=== PATIENT | male | born 1940 | race Caucasian/White ===

== ENCOUNTER → 2016-09-11 | Outpatient (CLI) | payer MEDICARE, OTHER ==
[~2016-09-11] MED LIST: AUGM500T34 PO; FLOM5CAP PO; NORCOTAB PO; PRIN10TA PO
[2016-09-11 13:20] LABS: ANION GAP 8 MEQ/L (8-16); BLOOD UREA NITROGEN 31 MG/DL (7-18); CALCIUM LEVEL 9.4 MG/DL (8.8-10.2); CARBON DIOXIDE LEVEL 32 MEQ/L (21-32); CHLORIDE LEVEL 99 MEQ/L (98-107); CREATININE FOR GFR 1.14 MG/DL (0.70-1.30); GLOMERULAR FILTRATION RATE > 60.0 (>42); GLUCOSE, FASTING 136 MG/DL (83-110); POTASSIUM SERUM 5.1 MEQ/L (3.5-5.1); SODIUM LEVEL 139 MEQ/L (136-145)
== END ==
LOC: M WUC 08:59
PROVIDERS: ATTEND Family Medicine
DX: E11.9 Type 2 diabetes mellitus without complications (principal); Z79.899 Other long term (current) drug therapy

== ENCOUNTER → 2016-11-02 | Outpatient (REF) | payer MEDICARE, OTHER | LOC: M LABDRAWP 12:23 | PROVIDERS: ATTEND Family Medicine | DX: C44.319 Basal cell carcinoma of skin of other parts of face (principal) ==

== ENCOUNTER → 2017-02-15 | Outpatient (REF) | payer MEDICARE, OTHER | LOC: M LAB REF 16:01 | PROVIDERS: ATTEND Physician Assistant | DX: T30.0 Burn of unspecified body region, unspecified degree (principal); Z79.899 Other long term (current) drug therapy ==

== ENCOUNTER → 2017-04-02 | Outpatient (CLI) | payer MEDICARE, OTHER ==
[2017-04-02 09:00] LABS: MEAN CORPUSCULAR HEMOGLOBIN 28.9 pg (27.0-33.0); MEAN CORPUSCULAR HGB CONC 31.8 g/dl (32.0-36.5); MEAN CORPUSCULAR VOLUME 91.1 fl (80.0-96.0); PLATELET COUNT, AUTOMATED 163 10^3/uL (150-450); RED CELL DISTRIBUTION WIDTH 12.9 % (11.5-14.5); WHITE BLOOD COUNT 4.2 10^3/uL (4.0-10.0)
[2017-04-02 09:51] LABS: ALBUMIN/GLOBULIN RATIO 1.43 (1.00-1.93); ALKALINE PHOSPHATASE 62 U/L (45-117); ALT/SGPT 21 U/L (12-78); ANION GAP 4 MEQ/L (8-16); AST/SGOT 24 U/L (7-37); BILIRUBIN,TOTAL 0.6 MG/DL (0.2-1.0); BLOOD UREA NITROGEN 26 MG/DL (7-18); CARBON DIOXIDE LEVEL 36 MEQ/L (21-32); CHLORIDE LEVEL 101 MEQ/L (98-107); CHOLESTEROL LEVEL 199 MG/DL (<200); CREATININE FOR GFR 0.94 MG/DL (0.70-1.30); GLOMERULAR FILTRATION RATE > 60.0 (>42); GLUCOSE, FASTING 132 MG/DL (83-110); POTASSIUM SERUM 4.8 MEQ/L (3.5-5.1); SODIUM LEVEL 141 MEQ/L (136-145); TOTAL PROTEIN 6.8 GM/DL (6.4-8.2); TRIGLYCERIDES LEVEL 86 MG/DL (<150)
== END ==
LOC: M WUC 08:15
PROVIDERS: ATTEND Family Medicine
DX: E78.2 Mixed hyperlipidemia (principal); Z87.11 Personal history of peptic ulcer disease; E11.9 Type 2 diabetes mellitus without complications

== ENCOUNTER → 2017-12-24 | Outpatient (REF) | payer MEDICARE, OTHER ==
[2017-12-24 19:39] LABS: HEMATOCRIT 42.5 % (42.0-52.0); HEMOGLOBIN 13.5 g/dl (13.5-17.5); MEAN CORPUSCULAR HEMOGLOBIN 29.1 pg (27.0-33.0); MEAN CORPUSCULAR HGB CONC 31.8 g/dl (32.0-36.5); MEAN CORPUSCULAR VOLUME 91.6 fl (80.0-96.0); PLATELET COUNT, AUTOMATED 195 10^3/uL (150-450); RED BLOOD COUNT 4.64 10^6/uL (4.30-6.10); RED CELL DISTRIBUTION WIDTH 13.3 % (11.5-14.5); WHITE BLOOD COUNT 6.1 10^3/uL (4.0-10.0)
[2017-12-24 20:12] LABS: ALBUMIN/GLOBULIN RATIO 1.33 (1.00-1.93); ALKALINE PHOSPHATASE 64 U/L (45-117); ALT/SGPT 24 U/L (12-78); ANION GAP 9 MEQ/L (8-16); AST/SGOT 27 U/L (7-37); BILIRUBIN,TOTAL 0.6 MG/DL (0.2-1.0); BLOOD UREA NITROGEN 26 MG/DL (7-18); CALCIUM LEVEL 9.2 MG/DL (8.8-10.2); CARBON DIOXIDE LEVEL 31 MEQ/L (21-32); CHLORIDE LEVEL 101 MEQ/L (98-107); CHOLESTEROL LEVEL 201 MG/DL (<200); CHOLESTEROL RISK RATIO 3.722 (<5); CREATININE FOR GFR 1.06 MG/DL (0.70-1.30); GLOMERULAR FILTRATION RATE > 60.0 (>42); GLUCOSE, FASTING 81 MG/DL (70-100); HDL CHOLESTEROL 54 MG/DL (>40); LDL CHOLESTEROL 113 MG/DL (<100); NON-HDL-C 147 MG/DL; POTASSIUM SERUM 4.3 MEQ/L (3.5-5.1); SODIUM LEVEL 141 MEQ/L (136-145); TRIGLYCERIDES LEVEL 172 MG/DL (<150)
[2017-12-24 20:19] LABS: ESTIMATED AVERAGE GLUCOSE 134 MG/DL (60-110); HEMOGLOBIN A1c 6.3 %
[2017-12-24 22:16] LABS: CREATININE, URINE 73.3 MG/DL
[2017-12-24 22:26] LABS: MAU/CREAT RATIO 49.1 MCG/MG (0.0-30.0)
== END ==
LOC: M SFHCADAM 15:49
DX: E78.2 Mixed hyperlipidemia (principal); E11.9 Type 2 diabetes mellitus without complications; I10 Essential (primary) hypertension
CPT/HCPCS: 80053

== ENCOUNTER → 2018-05-21 | Outpatient (REF) | payer MEDICARE, OTHER ==
[~2018-05-21] MED LIST changes: +FLOM0.4C39 PO; -FLOM5CAP PO
== END ==
LOC: M SFHCADAM 15:05
PROVIDERS: ATTEND Family Medicine
DX: K52.9 Noninfective gastroenteritis and colitis, unspecified (principal)

== ENCOUNTER → 2018-05-27 | Outpatient (CLI) | payer MEDICARE, OTHER ==
--- NOTE | 2018-05-27 20:13 | ECHO ---
DATE OF PROCEDURE: 05/27/2018 REFERRING PHYSICIAN: Soto Farmer MD INDICATION: Aortic stenosis. HEIGHT: 180 cm WEIGHT: 102 kg DIMENSIONS: IVS: 1.2 LV: 5.2 LVPW: 1.2 LA: 3.9 Aorta: 2.9 IVC: 1.5 Mitral E wave velocity: 112 Mitral A wave: 155 E prime septal: 5.1 E prime lateral: 5.3 Left atrial volume index: 25 FINDINGS: The study is of fair technical quality. The left ventricle is of normal size and systolic function with ejection fraction (EF) around 60%. Mild left ventricular hypertrophy (LVH) is noted. Right ventricle appears normal. Both atria are grossly normal size. Aortic valve is calcified. There is some restriction of cusp mobility. By 2-D imaging I assume mild aortic stenosis. There are also degenerative abnormalities of mitral valve with mitral annular calcifications, but mobility of leaflets is preserved. Tricuspid and pulmonic valves appear normal. No pericardial effusion is noted. Inferior vena cava is of normal caliber. Aortic root is normal. Aortic arch and abdominal aorta were not visualized. Doppler interrogation of aortic valve reveals mild stenosis (mean gradient 16 mmHg) and trace insufficiency. There is mild mitral insufficiency and mild tricuspid insufficiency. Calculated pulmonary artery pressure is minimum in 30s corresponding to mild pulmonary hypertension. Trace pulmonic insufficiency seen. Doppler interrogation of mitral inflow pattern and tissue Doppler imaging of mitral annulus reveal grade 1 diastolic dysfunction. CONCLUSION 1. Study is of fair technical quality. 2. Normal LV size with mild LVH and grossly preserved LV systolic function. Grade 1 diastolic dysfunction. 3. Mild aortic stenosis. 4. Mild mitral and tricuspid insufficiency. 5. Likely normal central venous pressure but at least mildly elevated pulmonary artery pressure. COMMENT Subacute bacterial endocarditis (SBE) prophylaxis is not recommended.
== END ==
LOC: M CARPUL 08:06
PROVIDERS: ATTEND Family Medicine
DX: I35.0 Nonrheumatic aortic (valve) stenosis (principal)

== ENCOUNTER → 2018-07-11 | Outpatient (CLI) | payer MEDICARE, OTHER ==
[~2018-07-11] MED LIST changes: +E-Z-GAS II EFFERVESCENT PACKET (SODIUM BICARB./CITRIC ACID/SIMETHICONE) As Ordered ONE; +E-Z-HD 98% w/w 340GM SUSP BTL As Ordered ONE; +E-Z-PAQUE 96% w/w SUSP 176GM BTL As Ordered ONE; +HYDR-3715 PO; -NORCOTAB PO
--- NOTE | 2018-07-11 16:37 | REP ---
Esophagram The procedure was performed under the direct supervision of Dr. Clayton. The images were reviewed with Dr. Clayton. A single view PA chest x-ray is submitted as a precision inspector film. The superior mediastinal structures are midline. The heart size is within normal limits. The lungs are clear. There is chronic elevation of the left hemidiaphragm as seen on a previous chest x-ray performed on 10/30/2013. Liquid barium and gas producing granules were given in the erect position as well as liquid barium in the prone oblique positions in order to perform a double contrast esophagram examination. The oral and pharyngeal stages of deglutition are unremarkable. There is exuberant osteophyte formation in the cervical spine which measures up to 12 mm in thickness. This causes eccentric compression of the cervical esophagus at the cervical thoracic junction. There are esophageal transport there are tertiary waves demonstrated. There is no esophagitis stricture mucosal ring or hiatal hernia. Gastroesophageal reflux is not demonstrated on this examination. Impression: 1. There is exuberant osteophyte formation in the cervical spine which measures up to 12 mm in thickness. This causes eccentric compression of the cervical esophagus at the cervical thoracic junction. 2. Tertiary waves. 0.8 minutes of fluoro time was utilized for this procedure. Reviewed by SHANIA Vaughn 07/11/2018 03:54 P Electronically Signed by Dg Clayton MD 07/11/2018 04:28 P
== END ==
LOC: M RAD 08:04
PROVIDERS: ATTEND Internal Medicine Gastroenterology
DX: R13.12 Dysphagia, oropharyngeal phase (principal)

== ENCOUNTER → 2018-07-28 | Outpatient (CLI) | payer MEDICARE, OTHER ==
[~2018-07-28] MED LIST changes: +ASPI1TAB22 PO; +CLOT1CRE71 TOP; -E-Z-GAS II EFFERVESCENT PACKET (SODIUM BICARB./CITRIC ACID/SIMETHICONE) As Ordered ONE; -E-Z-HD 98% w/w 340GM SUSP BTL As Ordered ONE; -E-Z-PAQUE 96% w/w SUSP 176GM BTL As Ordered ONE; +GLIP5TAB20 PO; +LISI-538 PO; +NIAS500T23 PO; +OMEP-221 PO
[2018-07-28 12:55] LABS: BLOOD UREA NITROGEN 23 MG/DL (7-18); CARBON DIOXIDE LEVEL 35 MEQ/L (21-32); CHLORIDE LEVEL 100 MEQ/L (98-107); CREATININE FOR GFR 0.96 MG/DL (0.70-1.30); GLOMERULAR FILTRATION RATE > 60.0 (>42); GLUCOSE, FASTING 173 MG/DL (70-100); POTASSIUM SERUM 4.2 MEQ/L (3.5-5.1); SODIUM LEVEL 139 MEQ/L (136-145)
== END ==
LOC: M WUC 09:45
PROVIDERS: ATTEND Family Medicine
DX: E11.9 Type 2 diabetes mellitus without complications (principal)
CPT/HCPCS: 36415; 80048; 83036; G0463

== ENCOUNTER 2018-08-05 09:06 | Day surgery (SDC) | payer MEDICARE, OTHER ==
[~2018-08-05] VITALS: Ht 175.3 cm; Wt 102.5 kg
[~2018-08-05 09:06] MED LIST changes: +NS 1,000 ML IV ONE
[2018-08-05] MEDS ORDERED: LIDOCAINE 2% INJ 100 MG/5 ML SDV (FOR ANES.) As Ordered ONE (11:41)
[2018-08-05] MEDS ORDERED: PROPOFOL 200 MG/20 ML VIAL As Ordered ONE (11:41)
--- NOTE | 2018-08-05 12:06 | ROOR ---
Patient Name: Kirk Curiel Procedure Date: 08/05/2018 11:49 AM Date of : 1940 Age: 78 Room: [facility] Gender: Male Note Status: Finalized Procedure: Upper GI endoscopy Indications: Heartburn, Follow-up of ulcer of the GI tract Providers: Hermes KEITH MD Referring MD: Soto Farmer MD Requesting Provider: Medicines: Monitored Anesthesia Care Complications: No immediate complications. Procedure: Pre-Anesthesia Assessment: - The heart rate, respiratory rate, oxygen saturations, blood pressure, adequacy of pulmonary ventilation, and response to care were monitored throughout the procedure. The Endoscope was introduced through the mouth, and advanced to the second part of duodenum. The upper GI endoscopy was accomplished without difficulty. The patient tolerated the procedure well. Findings: The esophagus was normal. The stomach was normal. (large volume/compliant stomach) The examined duodenum was normal. No endoscopic abnormality was evident in the esophagus to explain the patient's complaint of dysphagia. Biopsies were taken with a cold forceps in the gastric antrum for Helicobacter pylori testing. Impression: - Normal esophagus. - Normal stomach. - Normal examined duodenum. - Biopsies were taken with a cold forceps for Helicobacter pylori testing. Recommendation: - Observe patient's clinical course. Hermes Keith MD Hermes KEITH MD 08/05/2018 12:06:30 PM Electronically signed by Hermes KEITH MD Number of Addenda: 0 Note Initiated On: 08/05/2018 11:49 AM Estimated Blood Loss: Estimated blood loss: none.
--- NOTE | 2018-08-05 12:22 | ROOR ---
Patient Name: Kirk Curiel Procedure Date: 08/05/2018 11:49 AM Date of : 1940 Age: 78 Room: [facility] Gender: Male Note Status: Finalized Procedure: Colonoscopy Indications: Clinically significant diarrhea of unexplained origin Providers: Hermes KEITH MD Referring MD: Soto Farmer MD Requesting Provider: Medicines: Monitored Anesthesia Care Complications: No immediate complications. Procedure: Pre-Anesthesia Assessment: - The heart rate, respiratory rate, oxygen saturations, blood pressure, adequacy of pulmonary ventilation, and response to care were monitored throughout the procedure. The Colonoscope was introduced through the anus and advanced to the terminal ileum, with identification of the appendiceal orifice and IC valve. The colonoscopy was performed without difficulty. The patient tolerated the procedure well. The quality of the bowel preparation was adequate. Findings: The perianal and digital rectal examinations were normal. The colon (entire examined portion) was redundant. Mild sigmoid diverticulosis and small internal hemorrhoids. The exam was otherwise without abnormality on direct and retroflexion views. Biopsies for histology were taken with a cold forceps from the entire colon for evaluation of microscopic colitis. Impression: - Mild sigmoid diverticulosis and small internal hemorrhoids. - The colon examination was otherwise normal on direct and retroflexion views. - Biopsies were taken with a cold forceps from the entire colon for evaluation of microscopic colitis. Recommendation: - Telephone endoscopist for pathology results in 2 weeks. Hermes Keith MD Hermes KEITH MD 08/05/2018 12:21:57 PM Electronically signed by Hermes KEITH MD Number of Addenda: 0 Note Initiated On: 08/05/2018 11:49 AM Estimated Blood Loss: Estimated blood loss: none.
[2018-08-05 12:55] VITALS: BP 160/83
== END 2018-08-05 12:57 | disposition home or self-care (01) ==
LOC: M OPP 09:06
PROVIDERS: ATTEND Internal Medicine Gastroenterology
DX: Q43.8 Other specified congenital malformations of intestine (principal); R19.7 Diarrhea, unspecified; R13.10 Dysphagia, unspecified; R12 Heartburn; K28.9 Gastrojejunal ulcer, unspecified as acute or chronic, without hemorrhage or perforation; Z79.899 Other long term (current) drug therapy; Z79.82 Long term (current) use of aspirin; Z88.2 Allergy status to sulfonamides; Z88.8 Allergy status to other drugs, medicaments and biological substances

== ENCOUNTER → 2018-11-28 | Outpatient (CLI) | payer MEDICARE, OTHER ==
[~2018-11-28] MED LIST changes: -NS 1,000 ML IV ONE
--- NOTE | 2018-11-28 15:08 | REP ---
REASON: Constipation. KUB: FINDINGS: KUB shows the intestinal gas pattern to be nonspecific. The organ silhouettes insofar as delineated are unremarkable. There is no evidence of free intraperitoneal air. IMPRESSION: Nonspecific. The stool pattern appears normal. Electronically Signed by Garrett Saini DO 11/28/2018 03:13 P
== END ==
LOC: M WUC 14:25
PROVIDERS: ATTEND Nurse Practitioner Family
DX: R10.84 Generalized abdominal pain (principal); K59.00 Constipation, unspecified

== ENCOUNTER → 2018-12-15 | Outpatient (CLI) | payer MEDICARE, OTHER ==
--- NOTE | 2018-12-16 08:17 | REP ---
CT ABDOMEN AND PELVIS WITHOUT IV OR ORAL CONTRAST: HISTORY: Left lower quadrant pain. Comparison CT study, October 30, 2013. Comparison KUB, November 28, 2018. CT FINDINGS: Preliminary digital retail banker radiograph demonstrates a normal bowel gas pattern. The lung bases are clear. There are one or two granulomatous calcifications in the spleen. No focal hepatic lesion is seen. No adrenal lesion is observed. There is profound atrophy of the right kidney as noted previously. There are left renal cysts noted the largest of which measures 5 cm in greatest diameter. Previously, this measured 4.4 cm. There is also a 4.2 cm cyst which previously measured 3.5 cm. No hydronephrosis is seen. No intrarenal calculus is observed. The patient is status post appendectomy. Small and large intestinal bowel loops are normal in the upper abdomen. Pelvic CT images demonstrate sigmoid colon diverticulosis without CT evidence of diverticulitis. Urinary bladder and prostate are unremarkable. The right seminal vesicle is enlarged and cystic. The right ureter appears to insert here. This is unchanged in appearance from prior study. No abdominal wall defect is seen. IMPRESSION: There are two left renal cysts slightly larger than previous. Sigmoid colonic diverticulosis without CT evidence of diverticulitis. Prior appendectomy. Marked atrophy right kidney, unchanged. Electronically Signed by Dg Clayton MD 12/16/2018 09:08 A
== END ==
LOC: M RAD 15:53
PROVIDERS: ATTEND Family Medicine
DX: R10.32 Left lower quadrant pain (principal)

== ENCOUNTER → 2019-01-15 | Outpatient (CLI) | payer MEDICARE, OTHER ==
--- NOTE | 2019-01-15 12:36 | REP ---
ULTRASOUND URINARY BLADDER: Real-time sonographic evaluation of the urinary bladder performed. Bladder measures 12.3 x 8.2 x 6.6 cm for a total volume of 435 mL. No mass or calculus is seen. There is no bladder wall thickening. With Doppler color evaluation, the ureteral jets could not be visualized. Diverticulum is noted posteriorly and inferiorly on the right. Post-void residual is 247 mL which is 57% of the original volume. Prostate measures 3.6 x 3.4 x 3.6 cm for a total volume of 23 mL. IMPRESSION: Diverticulum at the right base of the bladder. Pre-void volume 435 mL, post-void residual 247 mL which is 57% of the original volume. Electronically Signed by Ap Keys MD 01/16/2019 09:22 A
--- NOTE | 2019-01-15 13:22 | REP ---
Renal sonography: History: BPH with urinary obstruction. Comparison study CT exam December 15, 2018. Sonographic findings: There is profound atrophy of the right kidney. The right kidney is poorly seen. It measures approximately 6.4 x 3.5 x 2.6 cm. There is no hydronephrosis visible on the right. There is evidence of compensatory enlargement of the left kidney. Its dimensions are 15.4 x 7.3 x 8.8 cm. There is no evidence of hydronephrosis. There are multiple cysts affecting the left kidney as seen on CT. These include a mid pole cyst measuring 5.2 x 4.4 x 3.2 cm and a lower pole cyst measuring 4.6 x 3.2 x 3.9 cm. Impression: Compensatory enlargement left kidney with two left renal cysts as above. No hydronephrosis. Profound atrophy right kidney without hydronephrosis. Electronically Signed by Dg Clayton MD 01/15/2019 01:27 P
== END ==
LOC: M RAD 10:39
PROVIDERS: ATTEND Nurse Practitioner Family
DX: N40.1 Benign prostatic hyperplasia with lower urinary tract symptoms (principal); N32.3 Diverticulum of bladder; N13.9 Obstructive and reflux uropathy, unspecified

== ENCOUNTER → 2019-01-27 | Outpatient (CLI) | payer MEDICARE, OTHER ==
[2019-01-27 13:03] LABS: ALBUMIN 3.6 GM/DL (3.2-5.2); ALT/SGPT 22 U/L (12-78); BILIRUBIN,TOTAL 1.1 MG/DL (0.2-1.0); BLOOD UREA NITROGEN 26 MG/DL (7-18); CALCIUM LEVEL 8.9 MG/DL (8.8-10.2); CARBON DIOXIDE LEVEL 35 MEQ/L (21-32); CHLORIDE LEVEL 99 MEQ/L (98-107); CHOLESTEROL LEVEL 199 MG/DL (<200); CHOLESTEROL RISK RATIO 3.685 (<5); CREATININE FOR GFR 1.11 MG/DL (0.70-1.30); GLOMERULAR FILTRATION RATE > 60.0 (>42); GLUCOSE, FASTING 194 MG/DL (70-100); HDL CHOLESTEROL 54 MG/DL (>40); LDL CHOLESTEROL 120 MG/DL (<100); NON-HDL-C 145 MG/DL; POTASSIUM SERUM 4.8 MEQ/L (3.5-5.1); SODIUM LEVEL 139 MEQ/L (136-145); TOTAL PROTEIN 6.7 GM/DL (6.4-8.2); TRIGLYCERIDES LEVEL 126 MG/DL (<150)
[2019-01-27 13:21] LABS: CREATININE, URINE 94.9 MG/DL; MALB URINE SIEMENS 56.5 MG/L; MAU/CREAT RATIO 59.5 MCG/MG (0.0-30.0)
[2019-01-27 13:42] LABS: HEMOGLOBIN A1c 8.6 %
== END ==
LOC: M WUC 09:04
PROVIDERS: ATTEND Family Medicine
DX: I10 Essential (primary) hypertension (principal); E78.2 Mixed hyperlipidemia; E11.9 Type 2 diabetes mellitus without complications

== ENCOUNTER → 2019-04-22 | Outpatient (CLI) | payer MEDICARE, OTHER ==
[2019-04-22 17:19] LABS: CALCIUM LEVEL 9.5 MG/DL (8.8-10.2); CREATININE FOR GFR 1.24 MG/DL (0.70-1.30); GLOMERULAR FILTRATION RATE 59.9 (>42); POTASSIUM SERUM 4.9 MEQ/L (3.5-5.1)
[2019-04-22 17:41] LABS: HEMOGLOBIN A1c 8.3 %
== END ==
LOC: M WUC 14:28
PROVIDERS: ATTEND Family Medicine
DX: E11.9 Type 2 diabetes mellitus without complications (principal)

== ENCOUNTER → 2019-04-22 | Outpatient (CLI) | payer MEDICARE, OTHER ==
--- NOTE | 2019-04-22 17:21 | REP ---
RIGHT ANKLE, FOUR VIEWS: There is no evidence of an acute fracture, dislocation or intrinsic bone disease. The ankle mortise is anatomic. There is mild spurring of the medial malleolus. There is moderate spurring of the posterior calcaneus. IMPRESSION: Small spur medial malleolus with moderate size spur posterior calcaneus. No fracture or dislocation. Electronically Signed by Ap Keys MD 04/22/2019 05:41 P
--- NOTE | 2019-04-22 17:23 | REP ---
RIGHT FOOT, FOUR VIEWS: Four views of the right foot are performed. There is no acute fracture or dislocation. There is moderate posterior calcaneal spurring. There is mild to moderate dorsal talar and navicular spurring. Small calcific density at the dorsal aspect of the talonavicular joint, could represent an old chip fracture or an accessory ossicle. There is mild narrowing and subchondral sclerosis at the first metatarsal phalangeal joint. IMPRESSION: Degenerative change as above. Electronically Signed by Ap Keys MD 04/22/2019 05:41 P
== END ==
LOC: M WUC 14:22
PROVIDERS: ATTEND Nurse Practitioner Family
DX: M77.31 Calcaneal spur, right foot (principal); M25.571 Pain in right ankle and joints of right foot; E11.9 Type 2 diabetes mellitus without complications

== ENCOUNTER → 2019-08-19 | Outpatient (REF) | payer MEDICARE, OTHER ==
[~2019-08-19] MED LIST changes: +JANU100T PO; -LISI-538 PO; +LISI20TA33 PO; +PROS5TAB PO
[2019-08-19 18:11] LABS: HEMATOCRIT 49.3 % (42.0-52.0); HEMOGLOBIN 14.9 g/dl (13.5-17.5); MEAN CORPUSCULAR HGB CONC 30.2 g/dl (32.0-36.5); MEAN CORPUSCULAR VOLUME 92.5 fl (80.0-96.0); PLATELET COUNT, AUTOMATED 175 10^3/uL (150-450); RED BLOOD COUNT 5.33 10^6/uL (4.30-6.10); WHITE BLOOD COUNT 6.2 10^3/uL (4.0-10.0)
[2019-08-19 18:22] LABS: ALBUMIN 3.8 GM/DL (3.2-5.2); BILIRUBIN,TOTAL 0.7 MG/DL (0.2-1.0); CALCIUM LEVEL 9.2 MG/DL (8.8-10.2); CHOLESTEROL RISK RATIO 4.488 (<5); CREATININE FOR GFR 1.25 MG/DL (0.70-1.30); GLOMERULAR FILTRATION RATE 59.3 (>42); POTASSIUM SERUM 4.8 MEQ/L (3.5-5.1); TOTAL PROTEIN 7.2 GM/DL (6.4-8.2)
[2019-08-19 18:27] LABS: CREATININE, URINE 90.2 MG/DL; MALB URINE SIEMENS 86.8 MG/L; MAU/CREAT RATIO 96.2 MCG/MG (0.0-30.0)
[2019-08-19 18:32] LABS: HEMOGLOBIN A1c 7.9 %
== END ==
LOC: M SFHCADAM 15:15
PROVIDERS: ATTEND Family Medicine
DX: I11.9 Hypertensive heart disease without heart failure (principal); E11.9 Type 2 diabetes mellitus without complications; E78.2 Mixed hyperlipidemia
CPT/HCPCS: 80053; 80061; 82043; 83036; 85027; G0463

== ENCOUNTER → 2019-10-20 | Outpatient (CLI) | payer MEDICARE, OTHER ==
[~2019-10-20] MED LIST changes: +LISI-538 PO; -LISI20TA33 PO
[2019-10-20 13:56] LABS: HEMATOCRIT 46.4 % (42.0-52.0); HEMOGLOBIN 14.5 g/dl (13.5-17.5); MEAN CORPUSCULAR HEMOGLOBIN 28.7 pg (27.0-33.0); MEAN CORPUSCULAR HGB CONC 31.3 g/dl (32.0-36.5); MEAN CORPUSCULAR VOLUME 91.9 fl (80.0-96.0); PLATELET COUNT, AUTOMATED 122 10^3/uL (150-450); RED BLOOD COUNT 5.05 10^6/uL (4.30-6.10); WHITE BLOOD COUNT 3.9 10^3/uL (4.0-10.0)
[2019-10-20 14:01] LABS: INR 0.99; PROTHROMBIN TIME 12.8 SECONDS (11.8-14.0)
[2019-10-20 14:02] LABS: PARTIAL THROMBOPLASTIN TIME 27.9 SECONDS (25.0-38.4)
--- NOTE | 2019-10-20 14:17 | ECGEPIP ---
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 Borderline first-degree AV block Extreme right axis - left posterior hemiblock Right bundle branch block Could not rule out prior septal injury No prior tracing for comparison Clinical correlation advised Electronically Signed on 10-20-2019 14:17:08 EDT by Neil Weller
[2019-10-20 14:23] LABS: BLOOD UREA NITROGEN 22 MG/DL (7-18); CALCIUM LEVEL 8.9 MG/DL (8.8-10.2); CARBON DIOXIDE LEVEL 35 MEQ/L (21-32); CHLORIDE LEVEL 100 MEQ/L (98-107); GLOMERULAR FILTRATION RATE > 60.0 (>42); GLUCOSE, FASTING 161 MG/DL (70-100); POTASSIUM SERUM 4.7 MEQ/L (3.5-5.1); SODIUM LEVEL 139 MEQ/L (136-145)
--- NOTE | 2019-10-20 17:11 | REP ---
REASON FOR EXAM: Preoperative for urinary obstruction. Latest prior for comparison is a portable examination of 05/02/2013. There are bibasilar fibrotic changes, status quo. There are no acute patchy opacities or pleural effusions. There is persistent mild elevation of the diaphragmatic surface of the left lung. The heart is not enlarged. The osseous structures are within normal limits for the patient's age. IMPRESSION: Stable-appearing chronic changes, as described above without evidence of acute cardiopulmonary disease. Electronically Signed by Garrett Saini DO 10/20/2019 06:50 P
== END ==
LOC: M LAB 11:32
PROVIDERS: ATTEND Urology
DX: Z01.818 Encounter for other preprocedural examination (principal); N40.1 Benign prostatic hyperplasia with lower urinary tract symptoms; Z79.899 Other long term (current) drug therapy; Z79.84 Long term (current) use of oral hypoglycemic drugs

== ENCOUNTER 2019-11-04 12:00 | Observation (INO) | payer MEDICARE, OTHER ==
[~2019-11-04] VITALS: Ht 177.8 cm; Wt 99.8 kg
[~2019-11-04 12:00] MED LIST changes: +FUROSEMIDE 100MG/10ML VIAL (J1940) ONE; +LIDOCAINE 2% 100MG/5ML SDV (FOR ANES.) ONE; +MIDAZOLAM INJ 2MG/2ML VIAL (J2250 PER 1MG) ONE; +ONDANSETRON 4MG/2ML VIAL ONE; +PHENYLephrine HCL 500 MCG/5 ML (100MCG/ML) SYRINGE (J2370) ONE; +ROCURONIUM BROMIDE 50 MG/5 ML VIAL ONE; +SUGAMMADEX SODIUM 500 MG/5 ML VIAL (BRIDION) ONE; +ceFAZolin 2 GM/D5W 50 ML IV BAG (J0690 PER 500MG) As Ordered ONE; +dexameTHASONE 4 MG/ML 1ML VIAL (J1100 PER 1MG) ONE; +fentaNYL 250 MCG/5 ML INJECTION (J3010) ONE; +propofoL 200 MG/20 ML VIAL ONE
[2019-11-04] MEDS ORDERED: ALBUTEROL SULFATE 2.5 MG/0.5 ML INH NEB SOLN As Ordered ONE (15:54)
[2019-11-04] MEDS ORDERED: lisinopriL 20 MG TAB As Ordered ONE (22:15)
[2019-11-04] MEDS ORDERED: lisinopriL 20 MG TAB ONE (22:15)
[2019-11-04] MEDS ORDERED: CIPROFLOXACIN 500MG TABLET ONE (22:15)
[2019-11-04] MEDS ORDERED: glipiZIDE (GLUCOTROL) 5 MG TAB ONE (22:15)
[2019-11-04] MEDS ORDERED: glipiZIDE (GLUCOTROL) 5 MG TAB As Ordered ONE (22:15)
[2019-11-04] MEDS ORDERED: TAMSULOSIN 0.4 MG CAP ONE (22:15)
[2019-11-04] MEDS ORDERED: ACETAMINOPHEN 325 MG TAB ONE (22:15)
[2019-11-04] MEDS ORDERED: CIPROFLOXACIN 500MG TABLET As Ordered ONE (22:15)
[2019-11-04] MEDS ORDERED: oxyBUTYnin 5 MG TAB ONE (22:15)
[2019-11-04] MEDS ORDERED: TAMSULOSIN 0.4 MG CAP As Ordered ONE (22:16)
[2019-11-04] MEDS ORDERED: ACETAMINOPHEN 325 MG TAB As Ordered ONE (22:16)
[2019-11-04] MEDS ORDERED: oxyBUTYnin 5 MG TAB As Ordered ONE (22:16)
[2019-11-04] MEDS ORDERED: SITagliptin 50 MG TAB (JANUVIA) As Ordered ONE (22:19)
[2019-11-05] MEDS ORDERED: CIPROFLOXACIN 500MG TABLET As Ordered ONE ×2 (08:37→21:14)
[2019-11-05] MEDS ORDERED: CIPROFLOXACIN 500MG TABLET ONE ×2 (08:37→20:14)
[2019-11-05] MEDS ORDERED: glipiZIDE (GLUCOTROL) 5 MG TAB ONE (08:37)
[2019-11-05] MEDS ORDERED: SITagliptin 50 MG TAB (JANUVIA) ONE (08:37)
[2019-11-05] MEDS ORDERED: lisinopriL 20 MG TAB ONE (08:37)
[2019-11-05] MEDS ORDERED: lisinopriL 20 MG TAB As Ordered ONE (08:37)
[2019-11-05] MEDS ORDERED: SITagliptin 50 MG TAB (JANUVIA) As Ordered ONE (08:38)
[2019-11-05] MEDS ORDERED: glipiZIDE (GLUCOTROL) 5 MG TAB As Ordered ONE (08:58)
[2019-11-05] MEDS ORDERED: TAMSULOSIN 0.4 MG CAP ONE (20:14)
[2019-11-05] MEDS ORDERED: TAMSULOSIN 0.4 MG CAP As Ordered ONE (21:14)
[2019-11-06] MEDS ORDERED: CIPROFLOXACIN 500MG TABLET As Ordered ONE (08:30)
[2019-11-06] MEDS ORDERED: lisinopriL 20 MG TAB ONE (08:30)
[2019-11-06] MEDS ORDERED: CIPROFLOXACIN 500MG TABLET ONE (08:30)
[2019-11-06] MEDS ORDERED: lisinopriL 20 MG TAB As Ordered ONE (08:30)
[2019-12-08 14:47] LABS: HEMATOCRIT 44.2 % (42.0-52.0); HEMOGLOBIN 13.7 g/dl (13.5-17.5); MEAN CORPUSCULAR HEMOGLOBIN 28.6 pg (27.0-33.0); MEAN CORPUSCULAR VOLUME 92.3 fl (80.0-96.0); PLATELET COUNT, AUTOMATED 118 10^3/uL (150-450); RED BLOOD COUNT 4.79 10^6/uL (4.30-6.10); WHITE BLOOD COUNT 6.8 10^3/uL (4.0-10.0)
[2019-12-21 15:20] LABS: ALBUMIN 3.2 GM/DL (3.2-5.2); ALT/SGPT 21 U/L (12-78); BILIRUBIN,TOTAL 1.4 MG/DL (0.2-1.0); BLOOD UREA NITROGEN 19 MG/DL (7-18); CALCIUM LEVEL 8.9 MG/DL (8.8-10.2); CARBON DIOXIDE LEVEL 38 MEQ/L (21-32); CHLORIDE LEVEL 98 MEQ/L (98-107); CREATININE FOR GFR 1.13 MG/DL (0.70-1.30); GLOMERULAR FILTRATION RATE > 60.0 (>42); GLUCOSE, FASTING 127 MG/DL (70-100); POTASSIUM SERUM 4.3 MEQ/L (3.5-5.1); SODIUM LEVEL 139 MEQ/L (136-145); TOTAL PROTEIN 6.3 GM/DL (6.4-8.2)
[2019-12-26 14:42] LABS: HEMATOCRIT 43.1 % (42.0-52.0); HEMOGLOBIN 13.6 g/dl (13.5-17.5); MEAN CORPUSCULAR HEMOGLOBIN 28.9 pg (27.0-33.0); MEAN CORPUSCULAR HGB CONC 31.6 g/dl (32.0-36.5); MEAN CORPUSCULAR VOLUME 91.7 fl (80.0-96.0); PLATELET COUNT, AUTOMATED 124 10^3/uL (150-450); WHITE BLOOD COUNT 8.7 10^3/uL (4.0-10.0)
[2019-12-26 14:52] LABS: HEMATOCRIT 44.6 % (42.0-52.0); HEMOGLOBIN 13.9 g/dl (13.5-17.5); MEAN CORPUSCULAR HEMOGLOBIN 28.5 pg (27.0-33.0); MEAN CORPUSCULAR HGB CONC 31.2 g/dl (32.0-36.5); MEAN CORPUSCULAR VOLUME 91.6 fl (80.0-96.0); PLATELET COUNT, AUTOMATED 124 10^3/uL (150-450); RED BLOOD COUNT 4.87 10^6/uL (4.30-6.10); WHITE BLOOD COUNT 7.9 10^3/uL (4.0-10.0)
--- NOTE | 2019-12-28 09:16 | REP ---
PORTABLE CHEST X-RAY: SINGLE VIEW HISTORY: Unavailable. This report was delayed due to a protracted network disruption experienced by this facility. COMPARISON: None. FINDINGS: There is plate-like atelectasis in the left base. Interstitial markings are diffusely increased. Heart is not enlarged. No focal infiltrate is seen. No significant bony abnormality. IMPRESSION: Diffusely increased interstitial markings. Question pulmonary fibrosis. Plate- like atelectasis left base. MTDD
--- NOTE | 2020-01-14 10:33 | RO ---
DATE OF PROCEDURE: November 04, 2019 PREOPERATIVE DIAGNOSIS: Benign prostatic hyperplasia. POSTOPERATIVE DIAGNOSES: * Benign prostatic hyperplasia. * Urethral meatal stenosis. * Right ureterocele. PROCEDURES: * Cystoscopy. * Transurethral vaporization of the prostate. * Unroofing of right ureterocele. * Urethral meatal dilation. SURGEON: Kennedy Franklin MD METAL MINER: None. ANESTHESIA: General. OPERATIVE INDICATIONS: This is a 79-year-old male with benign prostatic hyperplasia who was brought to the operating room today for treatment. DESCRIPTION OF PROCEDURE: The patient was brought to the operating room and general anesthesia was induced. Prophylactic antibiotics were infused. He was placed in the dorsal lithotomy position and prepped and draped in the usual sterile fashion. At this point, I attempted to insert a resectoscope into the urethral meatus, but it would not go in because the urethral meatus was too narrow. I therefore dilated the urethral meatus to 30-Cymraes using curved metal sounds. I was then able to advance the resectoscope into the urethral meatus and into the bladder using the visual obturator. At this point, the bladder was observed and the left ureteral orifice was orthotopic. However, it appeared that the patient had a right-sided ureterocele. At this point, I utilized a button to unroof the ureterocele. Next, I began vaporizing hyperplastic tissue circumferentially at the bladder neck and then on both lobes with disease. I kept vaporizing the tissue until there was a clear channel established to the prostatic urethra. Once there was a clear channel established, hemostasis was obtained using coagulation current. Once satisfied with hemostasis, the resectoscope was removed and an 18-Cymraes Ramon catheter was inserted into the bladder. The balloon was filled with 10 mL of sterile water and then the catheter was connected to gravity drainage. This marked the conclusion of the procedure. The patient was taken out of the dorsal lithotomy position, awakened from anesthesia, transported to the recovery room in stable condition. ESTIMATED BLOOD LOSS: 15 mL. COMPLICATIONS: None. SPECIMENS: None. PLAN: The patient will follow up in the clinic in approximately one week for catheter removal. EDSON
[2020-01-26 14:25] LABS: BLOOD UREA NITROGEN 22 MG/DL (7-18); CALCIUM LEVEL 8.5 MG/DL (8.8-10.2); CARBON DIOXIDE LEVEL 39 MEQ/L (21-32); CHLORIDE LEVEL 97 MEQ/L (98-107); GLOMERULAR FILTRATION RATE 47.9 (>42); GLUCOSE, FASTING 161 MG/DL (70-100); POTASSIUM SERUM 4.2 MEQ/L (3.5-5.1); SODIUM LEVEL 135 MEQ/L (136-145)
[2020-01-26 14:26] LABS: ALBUMIN 3.3 GM/DL (3.2-5.2); ALT/SGPT 23 U/L (12-78); BLOOD UREA NITROGEN 23 MG/DL (7-18); CALCIUM LEVEL 8.6 MG/DL (8.8-10.2); CARBON DIOXIDE LEVEL 38 MEQ/L (21-32); CHLORIDE LEVEL 98 MEQ/L (98-107); GLOMERULAR FILTRATION RATE 47.9 (>42); GLUCOSE, FASTING 190 MG/DL (70-100); NT-PRO BNP 191 PG/ML (<450); POTASSIUM SERUM 3.9 MEQ/L (3.5-5.1); SODIUM LEVEL 139 MEQ/L (136-145); TOTAL PROTEIN 6.6 GM/DL (6.4-8.2); TROPONIN I < 0.02 NG/ML (< 0.10)
[2020-01-30 08:48] LABS: ALBUMIN 3.2 GM/DL (3.2-5.2); ALT/SGPT 21 U/L (12-78); BILIRUBIN,TOTAL 1.4 MG/DL (0.2-1.0); BLOOD UREA NITROGEN 19 MG/DL (7-18); CALCIUM LEVEL 8.9 MG/DL (8.8-10.2); CARBON DIOXIDE LEVEL 38 MEQ/L (21-32); CHLORIDE LEVEL 98 MEQ/L (98-107); CREATININE FOR GFR 1.13 MG/DL (0.70-1.30); GLOMERULAR FILTRATION RATE > 60.0 (>42); GLUCOSE, FASTING 127 MG/DL (70-100); POTASSIUM SERUM 4.3 MEQ/L (3.5-5.1); SODIUM LEVEL 139 MEQ/L (136-145); TOTAL PROTEIN 6.3 GM/DL (6.4-8.2)
== END 2019-11-06 16:10 | disposition home or self-care (01) ==
LOC: M SDC 12:00 → M MS4PR 12:01 → M SDC 15:16
PROVIDERS: ADMIT Urology; ATTEND Urology
DX: N40.1 Benign prostatic hyperplasia with lower urinary tract symptoms (principal); J95.89 Other postprocedural complications and disorders of respiratory system, not elsewhere classified; R06.02 Shortness of breath; I10 Essential (primary) hypertension; E78.5 Hyperlipidemia, unspecified; E11.9 Type 2 diabetes mellitus without complications; E88.81 Metabolic syndrome and other insulin resistance; M45.9 Ankylosing spondylitis of unspecified sites in spine; E55.9 Vitamin D deficiency, unspecified; Z88.2 Allergy status to sulfonamides; Z88.8 Allergy status to other drugs, medicaments and biological substances; Z79.899 Other long term (current) drug therapy
CPT/HCPCS: 36415; 52290; 52601; 71045; 80053; 83880; 84484; 85027; G0378; J0690; J1100; J1940; J2250; J2370; J2405; J3010

== ENCOUNTER → 2020-01-01 | Outpatient (REF) | payer MEDICARE, OTHER ==
[~2020-01-01] MED LIST changes: -FUROSEMIDE 100MG/10ML VIAL (J1940) ONE; -LIDOCAINE 2% 100MG/5ML SDV (FOR ANES.) ONE; -MIDAZOLAM INJ 2MG/2ML VIAL (J2250 PER 1MG) ONE; -ONDANSETRON 4MG/2ML VIAL ONE; -PHENYLephrine HCL 500 MCG/5 ML (100MCG/ML) SYRINGE (J2370) ONE; -ROCURONIUM BROMIDE 50 MG/5 ML VIAL ONE; -SUGAMMADEX SODIUM 500 MG/5 ML VIAL (BRIDION) ONE; -ceFAZolin 2 GM/D5W 50 ML IV BAG (J0690 PER 500MG) As Ordered ONE; -dexameTHASONE 4 MG/ML 1ML VIAL (J1100 PER 1MG) ONE; -fentaNYL 250 MCG/5 ML INJECTION (J3010) ONE; -propofoL 200 MG/20 ML VIAL ONE
[2020-01-11 20:11] LABS: CA Oxalate Dihy 30 % (.); Ca Ox Monohydrate 60 % (.); Size 9x6 mm (.)
== END ==
LOC: M SMT 16:51
PROVIDERS: ATTEND Nurse Practitioner Family
DX: N20.0 Calculus of kidney (principal)

== ENCOUNTER → 2020-05-31 | Outpatient (CLI) | payer MEDICARE, OTHER ==
[~2020-05-31] MED LIST changes: -LISI-538 PO; +LISI20TA33 PO
[2020-05-31 11:32] LABS: HEMATOCRIT 49.8 % (42.0-52.0); HEMOGLOBIN 14.8 g/dl (13.5-17.5); MEAN CORPUSCULAR HEMOGLOBIN 27.8 pg (27.0-33.0); MEAN CORPUSCULAR HGB CONC 29.7 g/dl (32.0-36.5); MEAN CORPUSCULAR VOLUME 93.6 fl (80.0-96.0); PLATELET COUNT, AUTOMATED 136 10^3/uL (150-450); RED BLOOD COUNT 5.32 10^6/uL (4.30-6.10); WHITE BLOOD COUNT 4.4 10^3/uL (4.0-10.0)
[2020-05-31 11:46] LABS: HEMOGLOBIN A1c 6.8 %
[2020-05-31 12:19] LABS: ALBUMIN 3.7 GM/DL (3.2-5.2); ALT/SGPT 25 U/L (12-78); BILIRUBIN,TOTAL 1.1 MG/DL (0.2-1.0); BLOOD UREA NITROGEN 18 MG/DL (7-18); CALCIUM LEVEL 9.5 MG/DL (8.8-10.2); CARBON DIOXIDE LEVEL 36 MEQ/L (21-32); CHLORIDE LEVEL 98 MEQ/L (98-107); CHOLESTEROL LEVEL 189 MG/DL (<200); CHOLESTEROL RISK RATIO 3.705 (<5); CREATININE FOR GFR 1.17 MG/DL (0.70-1.30); GLOMERULAR FILTRATION RATE > 60.0 (>35); GLUCOSE, FASTING 161 MG/DL (70-100); HDL CHOLESTEROL 51 MG/DL (>40); LDL CHOLESTEROL 121 MG/DL (<100); NON-HDL-C 138 MG/DL; POTASSIUM SERUM 4.7 MEQ/L (3.5-5.1); SODIUM LEVEL 139 MEQ/L (136-145); TRIGLYCERIDES LEVEL 86 MG/DL (<150)
== END ==
LOC: M WUC 09:05
PROVIDERS: ATTEND Family Medicine
DX: I11.9 Hypertensive heart disease without heart failure (principal); E78.2 Mixed hyperlipidemia; G90.09 Other idiopathic peripheral autonomic neuropathy; Z79.899 Other long term (current) drug therapy

== ENCOUNTER → 2020-07-11 | Outpatient (CLI) | payer MEDICARE, OTHER ==
--- NOTE | 2020-07-11 10:04 | REP ---
INDICATION: KIDNEY STONE COMPARISON: None. TECHNIQUE: Supine views of the abdomen and pelvis. FINDINGS: Evaluation for urinary tract calcifications is significantly limited due to technique and overlying bowel gas. There is a 10 mm chronic round bone island along the right iliac crest and small phleboliths in the pelvis. The bowel gas pattern is nonspecific. The skeletal structures demonstrate degenerative changes. IMPRESSION: Nonspecific evaluation for urinary tract calcifications. If the patient remains symptomatic, noncontrast CT should be considered for further investigation. <Electronically signed by Jacob Clarke > 07/11/20 1000
== END ==
LOC: M WUC 09:41
PROVIDERS: ATTEND Nurse Practitioner Family
DX: N20.0 Calculus of kidney (principal)

== ENCOUNTER → 2020-09-06 | Outpatient (CLI) | payer MEDICARE, OTHER ==
--- NOTE | 2020-09-06 10:14 | REP ---
INDICATION: PAIN COMPARISON: None. TECHNIQUE: AP, lateral, bilateral oblique and sunrise views. FINDINGS: Early advanced tricompartmental osteoarthritic degenerative changes are appreciated including calcifications at the insertions of the patellar tendon on the tibial tuberosity and along the inferior margin of the patella as well as calcification at the patellar insertion of the quadriceps tendon. No obvious acute fracture or dislocation. IMPRESSION: Early advanced tricompartmental osteoarthritic degenerative changes. <Electronically signed by Jacob Clarke > 09/06/20 1010
--- NOTE | 2020-09-06 10:15 | REP ---
INDICATION: R COMPARISON: None. TECHNIQUE: AP, lateral, bilateral oblique views. FINDINGS: Generalized age-related changes are appreciated. Mild soft tissue swelling suggested. No acute fracture or dislocation. Ankle mortise intact. IMPRESSION: Generalized age-related changes and mild swelling. <Electronically signed by Jacob Clarke > 09/06/20 1013
--- NOTE | 2020-09-06 10:15 | REP ---
INDICATION: PAIN COMPARISON: None. TECHNIQUE: AP and frog-lateral views of the right hip FINDINGS: Moderate age-related degenerative changes include increased sclerosis to the acetabulum with minimal joint space narrowing and early spurring. No evidence for acute or healed injury. Surrounding soft tissues are normal. IMPRESSION: Moderate osteoarthritic degenerative changes. <Electronically signed by Jacob Clarke > 09/06/20 1011
== END ==
LOC: M WUC 09:01
PROVIDERS: ATTEND Physician Assistant
DX: M17.11 Unilateral primary osteoarthritis, right knee (principal); M16.11 Unilateral primary osteoarthritis, right hip; M25.551 Pain in right hip; M25.561 Pain in right knee; M25.571 Pain in right ankle and joints of right foot

== ENCOUNTER → 2020-10-03 | Outpatient (CLI) | payer MEDICARE, OTHER ==
[2020-10-03 14:27] LABS: BLOOD UREA NITROGEN 28 MG/DL (7-18); CREATININE FOR GFR 1.14 MG/DL (0.70-1.30); GLOMERULAR FILTRATION RATE > 60.0 (>35)
== END ==
LOC: M WUC 10:22
PROVIDERS: ATTEND Orthopaedic Surgery
DX: M16.11 Unilateral primary osteoarthritis, right hip (principal); R60.9 Edema, unspecified

== ENCOUNTER → 2020-10-03 | Outpatient (CLI) | payer MEDICARE, OTHER ==
[2020-10-03 13:45] LABS: BLOOD UREA NITROGEN 27 MG/DL (7-18); CALCIUM LEVEL 8.9 MG/DL (8.8-10.2); CARBON DIOXIDE LEVEL 35 MEQ/L (21-32); CHLORIDE LEVEL 99 MEQ/L (98-107); CREATININE FOR GFR 1.18 MG/DL (0.70-1.30); GLOMERULAR FILTRATION RATE > 60.0 (>35); GLUCOSE, FASTING 221 MG/DL (70-100); POTASSIUM SERUM 4.7 MEQ/L (3.5-5.1); SODIUM LEVEL 136 MEQ/L (136-145)
== END ==
LOC: M WUC 10:20
PROVIDERS: ATTEND Physician Assistant
DX: R60.9 Edema, unspecified (principal)

== ENCOUNTER → 2020-10-04 | Outpatient (CLI) | payer MEDICARE, OTHER ==
[~2020-10-04] MED LIST changes: +PROHANCE 279.3MG/ML 15ML VIAL As Ordered ONE; +PROHANCE 279.3MG/ML 5ML VIAL As Ordered ONE
--- NOTE | 2020-10-04 16:18 | REP ---
INDICATION: RT HIP OA W/ PAIN ? ENCHONDROMA VS BONE LESION. Evaluate enchondroma versus other bone lesion in the femoral neck. COMPARISON: Comparison radiograph September 06, 2020.. TECHNIQUE: Precontrast imaging includes coronal T1 and T2-weighted scans of both hips. Precontrast high-resolution smaller field of view axial, coronal and sagittal T2 fat sat images are acquired of the right hip. 20 mL of intravenous ProHance is administered and post contrast T1 weighted fat sat images of the right hip were acquired in all 3 planes as well. FINDINGS: Cortical and medullary bone signal intensity are normal in the femoral heads bilaterally. There is no evidence of avascular necrosis. The visualized bony pelvic ring is intact. There is ankylosis of the SI joints bilaterally consistent with ankylosing spondylitis. The left proximal femur is unremarkable. There is a benign enchondroma in the base of the femoral neck on the right. This measures 2.2 by 1.6 x 1.5 cm. Is characterized by a narrow show or sharp zone of transition, heterogeneous areas of low T2 high T2 signal intensity and low T1 signal intensity. There is no adjacent edema. There is no significant gadolinium enhancement. No other bony lesion is seen. There is Susanna trochanteric soft tissue edema on T2 weighted scans consistent with tendon 0 bursitis change bilaterally. Ligamentum teres is intact. There is mild degenerative change in the superior acetabular labral cartilage without a hunter tear. No significant gadolinium enhancement is appreciated. There are tiny paralabral cysts along the posterior aspect of the acetabular labrum consistent with degenerative change. Mild bilateral superior acetabular spurring and femoral head spurring. There is no evidence of pelvic mass or adenopathy. The left side of the prostate and the left seminal vesicle are larger than on the right. IMPRESSION: 1. Benign osteochondroma inter trochanteric femur on the right. 2. Mild osteoarthritic changes right hip. 3. Asymmetric prostate gland and left seminal vesicle enlargement uncertain etiology. Correlate clinically 4. Ankylosis of the SI joints bilaterally consistent with ankylosing spondylitis. <Electronically signed by Juan M Clayton > 10/04/20 [id number]
== END ==
LOC: M RAD 13:26
PROVIDERS: ATTEND Orthopaedic Surgery
DX: M16.11 Unilateral primary osteoarthritis, right hip (principal)
CPT/HCPCS: 73723; A9576

== ENCOUNTER → 2020-11-16 | Outpatient (REF) | payer MEDICARE, OTHER ==
[~2020-11-16] MED LIST changes: -PROHANCE 279.3MG/ML 15ML VIAL As Ordered ONE; -PROHANCE 279.3MG/ML 5ML VIAL As Ordered ONE
[2020-11-16 13:23] LABS: CALCIUM LEVEL 9.6 MG/DL (8.8-10.2); CREATININE FOR GFR 1.29 MG/DL (0.70-1.30); GLOMERULAR FILTRATION RATE 57.1 (>35); POTASSIUM SERUM 4.8 MEQ/L (3.5-5.1)
[2020-11-16 13:27] LABS: HEMOGLOBIN A1c 6.9 %
== END ==
LOC: M SFHCADAM 09:52
PROVIDERS: ATTEND Family Medicine
DX: E11.9 Type 2 diabetes mellitus without complications (principal)
CPT/HCPCS: 80048; 83036; G0463

== ENCOUNTER → 2021-05-22 | Outpatient (REF) | payer MEDICARE, OTHER ==
[~2021-05-22] MED LIST changes: -OMEP-221 PO; +OMEP40CA5 PO
[2021-05-22 12:53] LABS: BASO # 0.1 10^3/uL (0.0-0.2); BASO % 1.1 % (0.0-1.0); EOS # 0.3 10^3/uL (0.0-0.5); EOS % 4.5 % (0.0-3.0); HEMATOCRIT 52.7 % (42.0-52.0); HEMOGLOBIN 16.3 g/dl (13.5-17.5); LYMPH # 1.6 10^3/uL (1.5-5.0); LYMPH % 29.2 % (24.0-44.0); MEAN CORPUSCULAR HEMOGLOBIN 28.8 pg (27.0-33.0); MEAN CORPUSCULAR HGB CONC 30.9 g/dl (32.0-36.5); MEAN CORPUSCULAR VOLUME 93.3 fl (80.0-96.0); MONO # 0.6 10^3/uL (0.0-0.8); MONO % 11.2 % (2.0-8.0); NEUTROPHILS % 53.8 % (36.0-66.0); PLATELET COUNT, AUTOMATED 134 10^3/uL (150-450); RED BLOOD COUNT 5.65 10^6/uL (4.30-6.10); WHITE BLOOD COUNT 5.6 10^3/uL (4.0-10.0)
[2021-05-22 13:09] LABS: ALT/SGPT 31 U/L (12-78); BILIRUBIN,TOTAL 1.1 MG/DL (0.2-1.0); BLOOD UREA NITROGEN 26 MG/DL (7-18); CARBON DIOXIDE LEVEL 37 MEQ/L (21-32); CHLORIDE LEVEL 99 MEQ/L (98-107); GLOMERULAR FILTRATION RATE > 60.0 (>35); GLUCOSE, FASTING 148 MG/DL (70-100); POTASSIUM SERUM 4.4 MEQ/L (3.5-5.1); SODIUM LEVEL 139 MEQ/L (136-145); TOTAL PROTEIN 7.2 GM/DL (6.4-8.2)
[2021-05-22 13:13] LABS: HEMOGLOBIN A1c 6.9 %
== END ==
LOC: M SFHCADAM 10:21
PROVIDERS: ATTEND Family Medicine
DX: Z01.818 Encounter for other preprocedural examination (principal); E11.65 Type 2 diabetes mellitus with hyperglycemia

== ENCOUNTER → 2021-05-24 | Outpatient (REF) | payer MEDICARE, OTHER ==
[2021-05-24 17:16] LABS: FREE T4 1.15 NG/DL (0.76-1.46); MAGNESIUM LEVEL 2.1 MG/DL (1.8-2.4); THYROID STIMULATING HORMONE 0.744 uIU/ML (0.358-3.740)
== END ==
LOC: M SFHCADAM 11:50
PROVIDERS: ATTEND Family Medicine
DX: I47.1 Supraventricular tachycardia (principal)
CPT/HCPCS: 83735; 84439; 84443; G0463

== ENCOUNTER → 2021-07-10 | Outpatient (REF) | payer MEDICARE, OTHER ==
[2021-07-10 18:10] LABS: APPEARANCE, URINE CLEAR (CLEAR); BACTERIA, URINE AUTO NEGATIVE (NEGATIVE); BILIRUBIN, URINE AUTO NEGATIVE (NEGATIVE); BLOOD, URINE BLOOD NEGATIVE (NEGATIVE); COLOR, URINE YELLOW (YELLOW); GLUCOSE, URINE (UA) AUTO NEGATIVE (NEGATIVE); KETONE, URINE AUTO NEGATIVE (NEGATIVE); LEUKOCYTE ESTERASE, URINE AUTO NEGATIVE (NEGATIVE); MUCUS, URINE SMALL (NEGATIVE); NITRITE, URINE AUTO NEGATIVE (NEGATIVE); PROTEIN, URINE AUTO NEGATIVE (NEGATIVE); RBC, URINE AUTO 1 /HPF (0-3); SQUAMOUS EPITHELIAL CELL UR AU 0 /HPF (0-6); UROBILINOGEN, URINE AUTO 0.2 mg/dL (0.0-2.0); WBC, URINE AUTO 2 /HPF (0-3)
== END ==
LOC: M SMT 17:01
PROVIDERS: ATTEND Physician Assistant
DX: R33.9 Retention of urine, unspecified (principal)

== ENCOUNTER → 2021-08-17 | Outpatient (REF) | payer MEDICARE, OTHER ==
[2021-08-17 17:26] LABS: APPEARANCE, URINE CLEAR (CLEAR); BACTERIA, URINE AUTO NEGATIVE (NEGATIVE); BILIRUBIN, URINE AUTO NEGATIVE (NEGATIVE); BLOOD, URINE BLOOD NEGATIVE (NEGATIVE); COLOR, URINE YELLOW (YELLOW); GLUCOSE, URINE (UA) AUTO 1+ mg/dL (NEGATIVE); KETONE, URINE AUTO NEGATIVE (NEGATIVE); LEUKOCYTE ESTERASE, URINE AUTO NEGATIVE (NEGATIVE); MUCUS, URINE SMALL (NEGATIVE); NITRITE, URINE AUTO NEGATIVE (NEGATIVE); PROTEIN, URINE AUTO NEGATIVE (NEGATIVE); RBC, URINE AUTO 0 /HPF (0-3); SPECIFIC GRAVITY URINE AUTO 1.011 (1.002-1.035); SQUAMOUS EPITHELIAL CELL UR AU 0 /HPF (0-6); UROBILINOGEN, URINE AUTO 0.2 mg/dL (0.0-2.0); WBC, URINE AUTO 1 /HPF (0-3)
== END ==
LOC: M SMT 16:38
PROVIDERS: ATTEND Physician Assistant
DX: N40.1 Benign prostatic hyperplasia with lower urinary tract symptoms (principal)

== ENCOUNTER → 2021-08-30 | Outpatient (REF) | payer MEDICARE, OTHER ==
[2021-08-30 17:05] LABS: HEMATOCRIT 47.5 % (42.0-52.0); HEMOGLOBIN 14.6 g/dl (13.5-17.5); MEAN CORPUSCULAR HGB CONC 30.7 g/dl (32.0-36.5); MEAN CORPUSCULAR VOLUME 94.2 fl (80.0-96.0); PLATELET COUNT, AUTOMATED 126 10^3/uL (150-450); RED BLOOD COUNT 5.04 10^6/uL (4.30-6.10); WHITE BLOOD COUNT 5.6 10^3/uL (4.0-10.0)
[2021-08-30 17:33] LABS: ALBUMIN 3.6 GM/DL (3.2-5.2); BILIRUBIN,TOTAL 1.1 MG/DL (0.2-1.0); CALCIUM LEVEL 9.1 MG/DL (8.8-10.2); CHOLESTEROL RISK RATIO 3.5 (<5); CREATININE FOR GFR 1.59 MG/DL (0.70-1.30); FREE T4 1.1 NG/DL (0.76-1.46); GLOMERULAR FILTRATION RATE 44.7 (>35); POTASSIUM SERUM 4.2 MEQ/L (3.5-5.1); THYROID STIMULATING HORMONE 0.836 uIU/ML (0.358-3.740); TOTAL PROTEIN 6.8 GM/DL (6.4-8.2)
[2021-08-30 18:19] LABS: HEMOGLOBIN A1c 6.4 %
== END ==
LOC: M SFHCADAM 15:24
PROVIDERS: ATTEND Family Medicine
DX: I11.9 Hypertensive heart disease without heart failure (principal); E11.65 Type 2 diabetes mellitus with hyperglycemia; E78.2 Mixed hyperlipidemia; R60.0 Localized edema

== ENCOUNTER → 2021-10-10 | Outpatient (CLI) | payer MEDICARE, OTHER ==
[2021-10-10 17:16] LABS: CREATININE FOR GFR 1.67 MG/DL (0.70-1.30); GLOMERULAR FILTRATION RATE 42.2 (>35)
== END ==
LOC: M WUC 14:04
PROVIDERS: ATTEND Internal Medicine Cardiovascular Disease
DX: Z01.810 Encounter for preprocedural cardiovascular examination (principal)

== ENCOUNTER → 2021-10-26 | Outpatient (CLI) | payer MEDICARE, OTHER ==
[2021-10-26 18:21] LABS: CALCIUM LEVEL 9.2 MG/DL (8.8-10.2); CREATININE FOR GFR 1.39 MG/DL (0.70-1.30); GLOMERULAR FILTRATION RATE 52.2 (>35); POTASSIUM SERUM 4.5 MEQ/L (3.5-5.1)
== END ==
LOC: M WUC 10:54
PROVIDERS: ATTEND Nurse Practitioner Family
DX: I50.31 Acute diastolic (congestive) heart failure (principal)

== ENCOUNTER → 2021-11-14 | Outpatient (CLI) | payer MEDICARE, OTHER ==
[2021-11-14 13:30] LABS: BASO # 0.1 10^3/uL (0.0-0.2); BASO % 1.4 % (0.0-1.0); EOS # 0.2 10^3/uL (0.0-0.5); EOS % 5.4 % (0.0-3.0); HEMATOCRIT 51.5 % (42.0-52.0); HEMOGLOBIN 15.2 g/dl (13.5-17.5); LYMPH # 1.1 10^3/uL (1.5-5.0); LYMPH % 25.2 % (24.0-44.0); MEAN CORPUSCULAR HEMOGLOBIN 27.2 pg (27.0-33.0); MEAN CORPUSCULAR HGB CONC 29.5 g/dl (32.0-36.5); MEAN CORPUSCULAR VOLUME 92.3 fl (80.0-96.0); MONO # 0.5 10^3/uL (0.0-0.8); MONO % 11.7 % (2.0-8.0); NEUTROPHILS # 2.4 10^3/uL (1.5-8.5); NEUTROPHILS % 56.1 % (36.0-66.0); RED BLOOD COUNT 5.58 10^6/uL (4.30-6.10); WHITE BLOOD COUNT 4.3 10^3/uL (4.0-10.0)
[2021-11-14 13:57] LABS: PLATELET COUNT, AUTOMATED 83 10^3/uL (150-450)
[2021-11-14 15:13] LABS: HEPATITIS B CORE ANTIBODY IGM NEGATIVE (NEGATIVE); HEPATITIS B SURFACE ANTIGEN NEGATIVE (NEGATIVE); HEPATITIS C VIRUS ABY INDEX < 0.0 INDEX (<0.8); HIV 1&2 SCREEN CENTAUR NEGATIVE (NEGATIVE)
== END ==
LOC: M PLALAB 11:51
PROVIDERS: ATTEND Internal Medicine Hematology
DX: D69.6 Thrombocytopenia, unspecified (principal)

== ENCOUNTER 2021-11-20 08:08 | Outpatient (CLI) | payer MEDICARE, OTHER ==
[~2021-11-20] VITALS: Ht 180.3 cm; Wt 95.4 kg
[2021-11-20] VITALS (7 sets, daily range): BP systolic 129–154; BP diastolic 63–79
[~2021-11-20 08:08] MED LIST changes: +ACETAMINOPHEN TAB 650MG DOSE (2X325MG) PO PRN; +diphenhydrAMINE 25MG CAP PO PRN
[2021-11-20] MEDS ORDERED: diphenhydrAMINE 25MG CAP PO ONE (08:30)
[2021-11-20] MEDS ORDERED: ACETAMINOPHEN TAB 650MG DOSE (2X325MG) PO ONE (08:30)
[2021-11-20] MEDS ORDERED: IMMUNE GLOBULIN 10% 80 GM in IV 1 EA IV ONE (08:30)
== END 2021-11-20 14:00 ==
LOC: M INFU 08:08
PROVIDERS: ATTEND Internal Medicine Hematology
DX: D69.3 Immune thrombocytopenic purpura (principal); Z88.2 Allergy status to sulfonamides
CPT/HCPCS: 96365; 96366; J1459

== ENCOUNTER → 2021-11-22 | Outpatient (CLI) | payer MEDICARE, OTHER ==
[~2021-11-22] MED LIST changes: -ACETAMINOPHEN TAB 650MG DOSE (2X325MG) PO PRN; -diphenhydrAMINE 25MG CAP PO PRN
[2021-11-22 15:46] LABS: EOS # 0.2 10^3/uL (0.0-0.5); EOS % 5.6 % (0.0-3.0); HEMATOCRIT 43.5 % (42.0-52.0); LYMPH # 0.9 10^3/uL (1.5-5.0); LYMPH % 22.5 % (24.0-44.0); MEAN CORPUSCULAR HEMOGLOBIN 27.6 pg (27.0-33.0); MEAN CORPUSCULAR HGB CONC 29.9 g/dl (32.0-36.5); MEAN CORPUSCULAR VOLUME 92.4 fl (80.0-96.0); MONO # 0.6 10^3/uL (0.0-0.8); MONO % 14.9 % (2.0-8.0); NEUTROPHILS # 2.2 10^3/uL (1.5-8.5); RED BLOOD COUNT 4.71 10^6/uL (4.30-6.10)
[2021-11-22 16:10] LABS: PLATELET COUNT, AUTOMATED 80 10^3/uL (150-450)
== END ==
LOC: M PLALAB 13:24
PROVIDERS: ATTEND Internal Medicine Hematology
DX: D69.3 Immune thrombocytopenic purpura (principal)

== ENCOUNTER → 2021-11-27 | Outpatient (CLI) | payer MEDICARE, OTHER ==
[2021-11-27 14:07] LABS: HEMATOCRIT 44.2 % (42.0-52.0); HEMOGLOBIN 13.3 g/dl (13.5-17.5); MEAN CORPUSCULAR HEMOGLOBIN 27.8 pg (27.0-33.0); MEAN CORPUSCULAR HGB CONC 30.1 g/dl (32.0-36.5); MEAN CORPUSCULAR VOLUME 92.5 fl (80.0-96.0); RED BLOOD COUNT 4.78 10^6/uL (4.30-6.10); WHITE BLOOD COUNT 3.4 10^3/uL (4.0-10.0)
[2021-11-27 14:16] LABS: PLATELET COUNT, AUTOMATED 87 10^3/uL (150-450)
[2021-11-27 15:12] LABS: ALBUMIN 3.3 GM/DL (3.2-5.2); ALT/SGPT 34 U/L (12-78); BILIRUBIN,TOTAL 0.7 MG/DL (0.2-1.0); BLOOD UREA NITROGEN 25 MG/DL (7-18); CALCIUM LEVEL 9.1 MG/DL (8.8-10.2); CARBON DIOXIDE LEVEL 40 MEQ/L (21-32); CHLORIDE LEVEL 102 MEQ/L (98-107); CHOLESTEROL LEVEL 187 MG/DL (<200); CHOLESTEROL RISK RATIO 2.968 (<5); CREATININE FOR GFR 1.12 MG/DL (0.70-1.30); GLOMERULAR FILTRATION RATE > 60.0 (>35); GLUCOSE, FASTING 57 MG/DL (70-100); HDL CHOLESTEROL 63 MG/DL (>40); LDL CHOLESTEROL 109 MG/DL (<100); NON-HDL-C 124 MG/DL; POTASSIUM SERUM 5.3 MEQ/L (3.5-5.1); SODIUM LEVEL 141 MEQ/L (136-145); TOTAL PROTEIN 7.2 GM/DL (6.4-8.2); TRIGLYCERIDES LEVEL 77 MG/DL (<150)
== END ==
LOC: M PLALAB 08:38
PROVIDERS: ATTEND Family Medicine
DX: I35.0 Nonrheumatic aortic (valve) stenosis (principal); E78.2 Mixed hyperlipidemia; E11.65 Type 2 diabetes mellitus with hyperglycemia

== ENCOUNTER → 2021-11-30 | Outpatient (CLI) | payer MEDICARE, OTHER ==
[2021-11-30 15:49] LABS: BASO # 0.1 10^3/uL (0.0-0.2); BASO % 1.1 % (0.0-1.0); EOS # 0.1 10^3/uL (0.0-0.5); EOS % 1.9 % (0.0-3.0); HEMATOCRIT 47.2 % (42.0-52.0); HEMOGLOBIN 14.4 g/dl (13.5-17.5); LYMPH # 1.4 10^3/uL (1.5-5.0); LYMPH % 23.8 % (24.0-44.0); MEAN CORPUSCULAR HEMOGLOBIN 27.6 pg (27.0-33.0); MEAN CORPUSCULAR HGB CONC 30.5 g/dl (32.0-36.5); MEAN CORPUSCULAR VOLUME 90.4 fl (80.0-96.0); MONO # 0.6 10^3/uL (0.0-0.8); MONO % 10.9 % (2.0-8.0); NEUTROPHILS # 3.5 10^3/uL (1.5-8.5); NEUTROPHILS % 62.1 % (36.0-66.0); PLATELET COUNT, AUTOMATED 110 10^3/uL (150-450); RED BLOOD COUNT 5.22 10^6/uL (4.30-6.10); WHITE BLOOD COUNT 5.7 10^3/uL (4.0-10.0)
== END ==
LOC: M PLALAB 13:04
PROVIDERS: ATTEND Internal Medicine Hematology
DX: D69.3 Immune thrombocytopenic purpura (principal)

== ENCOUNTER → 2021-12-12 | Outpatient (REF) | payer MEDICARE, OTHER ==
[2021-12-12 16:35] LABS: BASO % 0.6 % (0.0-1.0); EOS % 0.3 % (0.0-3.0); HEMATOCRIT 48.9 % (42.0-52.0); HEMOGLOBIN 14.7 g/dl (13.5-17.5); LYMPH # 0.9 10^3/uL (1.5-5.0); LYMPH % 14.1 % (24.0-44.0); MEAN CORPUSCULAR HEMOGLOBIN 27.7 pg (27.0-33.0); MEAN CORPUSCULAR HGB CONC 30.1 g/dl (32.0-36.5); MEAN CORPUSCULAR VOLUME 92.1 fl (80.0-96.0); MONO # 0.3 10^3/uL (0.0-0.8); MONO % 3.8 % (2.0-8.0); NEUTROPHILS # 5.3 10^3/uL (1.5-8.5); PLATELET COUNT, AUTOMATED 111 10^3/uL (150-450); RED BLOOD COUNT 5.31 10^6/uL (4.30-6.10); WHITE BLOOD COUNT 6.5 10^3/uL (4.0-10.0)
== END ==
LOC: M LABWUC 16:08
PROVIDERS: ATTEND Internal Medicine Hematology
DX: D69.3 Immune thrombocytopenic purpura (principal)

== ENCOUNTER → 2022-01-01 | Outpatient (CLI) | payer MEDICARE, OTHER ==
[2022-01-01 13:34] LABS: HEMATOCRIT 45.8 % (42.0-52.0); HEMOGLOBIN 13.8 g/dl (13.5-17.5); MEAN CORPUSCULAR HEMOGLOBIN 27.7 pg (27.0-33.0); MEAN CORPUSCULAR HGB CONC 30.1 g/dl (32.0-36.5); MEAN CORPUSCULAR VOLUME 91.8 fl (80.0-96.0); PLATELET COUNT, AUTOMATED 121 10^3/uL (150-450); RED BLOOD COUNT 4.99 10^6/uL (4.30-6.10); WHITE BLOOD COUNT 5.8 10^3/uL (4.0-10.0)
[2022-01-01 14:25] LABS: CALCIUM LEVEL 9.8 MG/DL (8.8-10.2); CREATININE FOR GFR 1.6 MG/DL (0.70-1.30); GLOMERULAR FILTRATION RATE 44.4 (>35); POTASSIUM SERUM 5.8 MEQ/L (3.5-5.1)
[2022-01-01 14:26] LABS: ALBUMIN 3.7 GM/DL (3.2-5.2); CHOLESTEROL RISK RATIO 2.875 (<5); TOTAL PROTEIN 6.9 GM/DL (6.4-8.2)
[2022-01-01 15:41] LABS: HEMOGLOBIN A1c 7.9 %
== END ==
LOC: M PLALAB 09:54
PROVIDERS: ATTEND Internal Medicine Hematology
DX: I35.0 Nonrheumatic aortic (valve) stenosis (principal); E78.2 Mixed hyperlipidemia; E11.65 Type 2 diabetes mellitus with hyperglycemia

== ENCOUNTER → 2022-01-17 | Outpatient (CLI) | payer MEDICARE, OTHER ==
[2022-01-17 12:55] LABS: BASO % 0.3 % (0.0-1.0); EOS # 0.1 10^3/uL (0.0-0.5); EOS % 1.5 % (0.0-3.0); HEMOGLOBIN 11.3 g/dl (13.5-17.5); LYMPH # 0.6 10^3/uL (1.5-5.0); LYMPH % 7.8 % (24.0-44.0); MEAN CORPUSCULAR HGB CONC 29.7 g/dl (32.0-36.5); MEAN CORPUSCULAR VOLUME 97.4 fl (80.0-96.0); MONO # 0.6 10^3/uL (0.0-0.8); MONO % 7.7 % (2.0-8.0); NEUTROPHILS # 6.5 10^3/uL (1.5-8.5); NEUTROPHILS % 82.4 % (36.0-66.0); PLATELET COUNT, AUTOMATED 123 10^3/uL (150-450); WHITE BLOOD COUNT 7.9 10^3/uL (4.0-10.0)
== END ==
LOC: M WUC 10:22
DX: I35.0 Nonrheumatic aortic (valve) stenosis (principal)

== ENCOUNTER → 2022-02-05 | Outpatient (REF) | payer MEDICARE, OTHER ==
[2022-02-05 13:11] LABS: HEMATOCRIT 39.4 % (42.0-52.0); HEMOGLOBIN 11.9 g/dl (13.5-17.5); MEAN CORPUSCULAR HEMOGLOBIN 29.5 pg (27.0-33.0); MEAN CORPUSCULAR HGB CONC 30.2 g/dl (32.0-36.5); MEAN CORPUSCULAR VOLUME 97.5 fl (80.0-96.0); PLATELET COUNT, AUTOMATED 130 10^3/uL (150-450); RED BLOOD COUNT 4.04 10^6/uL (4.30-6.10); WHITE BLOOD COUNT 6.9 10^3/uL (4.0-10.0)
== END ==
LOC: M LABWUC 12:10
PROVIDERS: ATTEND Internal Medicine Hematology
DX: I35.0 Nonrheumatic aortic (valve) stenosis (principal)

== ENCOUNTER → 2022-03-06 | Outpatient (CLI) | payer MEDICARE, OTHER ==
[2022-03-06 15:02] LABS: HEMATOCRIT 45.1 % (42.0-52.0); HEMOGLOBIN 13.6 g/dl (13.5-17.5); MEAN CORPUSCULAR HEMOGLOBIN 29.8 pg (27.0-33.0); MEAN CORPUSCULAR HGB CONC 30.2 g/dl (32.0-36.5); MEAN CORPUSCULAR VOLUME 98.7 fl (80.0-96.0); PLATELET COUNT, AUTOMATED 143 10^3/uL (150-450); RED BLOOD COUNT 4.57 10^6/uL (4.30-6.10); WHITE BLOOD COUNT 5.1 10^3/uL (4.0-10.0)
[2022-03-06 15:15] LABS: ALBUMIN 3.5 G/DL (3.2-5.2)
[2022-03-06 15:20] LABS: CALCIUM LEVEL 9.3 MG/DL (8.3-10.6)
[2022-03-06 15:22] LABS: BILIRUBIN,TOTAL 0.8 MG/DL (0.3-1.2); TOTAL PROTEIN 6.4 G/DL (5.7-8.2)
[2022-03-06 15:23] LABS: CHOLESTEROL RISK RATIO 4.91 (<5); CREATININE FOR GFR 1.42 MG/DL (0.70-1.30); GLOMERULAR FILTRATION RATE 50.8 (>35); HDL CHOLESTEROL 45.4 MG/DL (>40); LDL CHOLESTEROL 153.8 MG/DL (<100)
[2022-03-06 15:24] LABS: POTASSIUM SERUM 4.9 MMOL/L (3.5-5.1)
[2022-03-06 17:30] LABS: HEMOGLOBIN A1c 7.6 % (4.0-6.0)
== END ==
LOC: M WUC 08:54
PROVIDERS: ATTEND Family Medicine
DX: I35.0 Nonrheumatic aortic (valve) stenosis (principal); E11.65 Type 2 diabetes mellitus with hyperglycemia; E78.2 Mixed hyperlipidemia

== ENCOUNTER → 2022-03-09 | Outpatient (CLI) | payer MEDICARE, OTHER | LOC: M CARPUL 12:20 | PROVIDERS: ATTEND Physician Assistant | DX: I35.0 Nonrheumatic aortic (valve) stenosis (principal); I50.1 Left ventricular failure, unspecified ==

== ENCOUNTER → 2022-04-23 | Outpatient (CLI) | payer MEDICARE, OTHER ==
[2022-04-23 12:29] LABS: BASO # 0.1 10^3/uL (0.0-0.2); BASO % 0.9 % (0.0-1.0); EOS # 0.2 10^3/uL (0.0-0.5); EOS % 3.6 % (0.0-3.0); HEMATOCRIT 44.8 % (42.0-52.0); HEMOGLOBIN 13.3 g/dl (13.5-17.5); LYMPH # 1.1 10^3/uL (1.5-5.0); LYMPH % 17.6 % (24.0-44.0); MEAN CORPUSCULAR HEMOGLOBIN 28.4 pg (27.0-33.0); MEAN CORPUSCULAR HGB CONC 29.7 g/dl (32.0-36.5); MEAN CORPUSCULAR VOLUME 95.5 fl (80.0-96.0); MONO # 0.7 10^3/uL (0.0-0.8); MONO % 10.7 % (2.0-8.0); NEUTROPHILS # 4.3 10^3/uL (1.5-8.5); NEUTROPHILS % 66.9 % (36.0-66.0); PLATELET COUNT, AUTOMATED 165 10^3/uL (150-450); RED BLOOD COUNT 4.69 10^6/uL (4.30-6.10); WHITE BLOOD COUNT 6.4 10^3/uL (4.0-10.0)
== END ==
LOC: M WUC 10:07
PROVIDERS: ATTEND Internal Medicine Hematology
DX: D69.6 Thrombocytopenia, unspecified (principal)

== ENCOUNTER → 2022-05-15 | Outpatient (REF) | payer MEDICARE, OTHER ==
[2022-05-15 13:17] LABS: HEMATOCRIT 48.6 % (42.0-52.0); HEMOGLOBIN 14.4 g/dl (13.5-17.5); MEAN CORPUSCULAR HEMOGLOBIN 27.5 pg (27.0-33.0); MEAN CORPUSCULAR HGB CONC 29.6 g/dl (32.0-36.5); MEAN CORPUSCULAR VOLUME 92.9 fl (80.0-96.0); RED BLOOD COUNT 5.23 10^6/uL (4.30-6.10); WHITE BLOOD COUNT 4.7 10^3/uL (4.0-10.0)
[2022-05-15 13:43] LABS: PLATELET COUNT, AUTOMATED 89 10^3/uL (150-450)
[2022-05-15 13:53] LABS: BLOOD UREA NITROGEN 24 MG/DL (9-23); CARBON DIOXIDE LEVEL > 40.0 MMOL/L (20-31); CHLORIDE LEVEL 95 MMOL/L (98-107); CREATININE FOR GFR 1.44 MG/DL (0.70-1.30); GLUCOSE, FASTING 67 MG/DL (74-106); POTASSIUM SERUM 4.8 MMOL/L (3.5-5.1); SODIUM LEVEL 141 MMOL/L (136-145)
[2022-05-15 14:09] LABS: HEMOGLOBIN A1c 6.8 % (4.0-6.0)
== END ==
LOC: M SFHCADAM 10:53
PROVIDERS: ATTEND Family Medicine
DX: D69.3 Immune thrombocytopenic purpura (principal); E11.65 Type 2 diabetes mellitus with hyperglycemia

== ENCOUNTER → 2022-07-10 | Outpatient (CLI) | payer MEDICARE, OTHER ==
[2022-07-10 16:47] LABS: BLOOD UREA NITROGEN 33 MG/DL (9-23); CALCIUM LEVEL 8.9 MG/DL (8.3-10.6); CARBON DIOXIDE LEVEL > 40.0 MMOL/L (20-31); CHLORIDE LEVEL 99 MMOL/L (98-107); CREATININE FOR GFR 1.55 MG/DL (0.70-1.30); GLOMERULAR FILTRATION RATE 45.9 (>35); GLUCOSE, FASTING 209 MG/DL (74-106); POTASSIUM SERUM 4.2 MMOL/L (3.5-5.1); SODIUM LEVEL 137 MMOL/L (136-145)
== END ==
LOC: M PLALAB 14:21
PROVIDERS: ATTEND Internal Medicine Critical Care Medicine
DX: R09.02 Hypoxemia (principal)

== ENCOUNTER → 2022-07-16 | Outpatient (REF) | payer MEDICARE, OTHER ==
[2022-07-16 17:33] LABS: BASO # 0.1 10^3/uL (0.0-0.2); BASO % 1.3 % (0.0-1.0); EOS # 0.2 10^3/uL (0.0-0.5); EOS % 5.2 % (0.0-3.0); HEMATOCRIT 49.6 % (42.0-52.0); HEMOGLOBIN 14.8 g/dl (13.5-17.5); LYMPH # 1.2 10^3/uL (1.5-5.0); LYMPH % 26.7 % (24.0-44.0); MEAN CORPUSCULAR HEMOGLOBIN 27.6 pg (27.0-33.0); MEAN CORPUSCULAR HGB CONC 29.8 g/dl (32.0-36.5); MEAN CORPUSCULAR VOLUME 92.5 fl (80.0-96.0); MONO # 0.5 10^3/uL (0.0-0.8); MONO % 11.6 % (2.0-8.0); NEUTROPHILS # 2.6 10^3/uL (1.5-8.5); PLATELET COUNT, AUTOMATED 102 10^3/uL (150-450); RED BLOOD COUNT 5.36 10^6/uL (4.30-6.10); WHITE BLOOD COUNT 4.6 10^3/uL (4.0-10.0)
== END ==
LOC: M SFHCPLAZ 16:15
PROVIDERS: ATTEND Internal Medicine Hematology
DX: D69.3 Immune thrombocytopenic purpura (principal)

== ENCOUNTER → 2022-07-17 | Outpatient (REF) | payer MEDICARE, OTHER | LOC: M SFHCPLAZ 09:33 | PROVIDERS: ATTEND Internal Medicine Hematology | DX: D69.3 Immune thrombocytopenic purpura (principal) ==

== ENCOUNTER → 2022-07-31 | Outpatient (CLI) | payer MEDICARE, OTHER | LOC: M SLEEP 20:00 | PROVIDERS: ATTEND Internal Medicine Critical Care Medicine | DX: G47.31 Primary central sleep apnea (principal) ==

== ENCOUNTER → 2022-09-20 | Outpatient (CLI) | payer MEDICARE, OTHER | LOC: M WHC 13:30 | PROVIDERS: ATTEND Physician Assistant | DX: N50.812 Left testicular pain (principal); I86.1 Scrotal varices ==

== ENCOUNTER → 2022-10-02 | Outpatient (CLI) | payer MEDICARE, OTHER ==
[2022-10-02 14:09] LABS: BLOOD UREA NITROGEN 35 MG/DL (9-23); CARBON DIOXIDE LEVEL > 40.0 MMOL/L (20-31); CHLORIDE LEVEL 97 MMOL/L (98-107); CREATININE FOR GFR 1.42 MG/DL (0.70-1.30); GLOMERULAR FILTRATION RATE 50.8 (>35); GLUCOSE, FASTING 180 MG/DL (74-106); POTASSIUM SERUM 4.1 MMOL/L (3.5-5.1); SODIUM LEVEL 140 MMOL/L (136-145)
== END ==
LOC: M PLALAB 10:59
PROVIDERS: ATTEND Physician Assistant
DX: I50.32 Chronic diastolic (congestive) heart failure (principal)

== ENCOUNTER → 2022-10-05 | Outpatient (CLI) | payer MEDICARE, OTHER ==
[2022-10-05 18:06] LABS: BLOOD UREA NITROGEN 32 MG/DL (9-23); CALCIUM LEVEL 8.8 MG/DL (8.3-10.6); CARBON DIOXIDE LEVEL > 40.0 MMOL/L (20-31); CHLORIDE LEVEL 98 MMOL/L (98-107); CREATININE FOR GFR 1.28 MG/DL (0.70-1.30); GLOMERULAR FILTRATION RATE 57.3 (>35); GLUCOSE, FASTING 142 MG/DL (74-106); POTASSIUM SERUM 4.3 MMOL/L (3.5-5.1); SODIUM LEVEL 140 MMOL/L (136-145)
== END ==
LOC: M WUC 12:58
PROVIDERS: ATTEND Internal Medicine Critical Care Medicine
DX: I27.20 Pulmonary hypertension, unspecified (principal)

== ENCOUNTER → 2022-10-11 | Outpatient (CLI) | payer MEDICARE, OTHER ==
[~2022-10-11] MED LIST changes: +ISOVUE-370 76% 100ML VIAL As Ordered ONE
== END ==
LOC: M RAD 15:59
PROVIDERS: ATTEND Internal Medicine Critical Care Medicine
DX: R09.02 Hypoxemia (principal)
CPT/HCPCS: 71260; Q9967

== ENCOUNTER → 2022-10-19 | Outpatient (CLI) | payer MEDICARE, OTHER ==
[~2022-10-19] MED LIST changes: +FINA-48 PO; -ISOVUE-370 76% 100ML VIAL As Ordered ONE; -PROS5TAB PO
== END ==
LOC: M WUC 14:56
PROVIDERS: ATTEND Physician Assistant
DX: N50.89 Other specified disorders of the male genital organs (principal)

== ENCOUNTER → 2022-12-19 | Outpatient (CLI) | payer MEDICARE, OTHER ==
[2022-12-20 09:03] LABS: C REACTIVE PROTEIN QUANTITATIV < 0.40 MG/DL (<1.0)
[2022-12-22 18:53] LABS: RHEUMATOID FACTOR QUANT 22.8 IU/ML (<14)
[2022-12-26 14:11] LABS: ANCA-ATYPICAL <1:20 titer (Neg:<1:20); ANGIOTENSIN 1 CONVERTING ENZYM 38 U/L (14-82); ANTINUCLEAR ANTIBODIES DIRECT Negative (Negative); ASPERGILLUS FUMIGATUS AB Negative (Negative); AUREOBASIDIUM PULLULANS Negative (Negative); CYCLIC CITRULLINATED PEPTIDE < 1 units (0-19); CYTOPLASMIC NEUTROP AB ANCA-C <1:20 titer (Neg:<1:20); MICROPOLYSPORA FAENI AB Negative (Negative); PERINUCLEAR AB ANCA-P <1:20 titer (Neg:<1:20); PIGEON SERUM AB Negative (Negative); SJOGREN'S ANTI SS-A <0.2 AI (0.0-0.9); SJOGREN'S ANTI SS-B <0.2 AI (0.0-0.9); THERMOACTINOMYCES SACCHARI Negative (Negative); THERMOACTINOMYCES VULGARIS Negative (Negative)
== END ==
LOC: M WUC 15:41
PROVIDERS: ATTEND Internal Medicine Critical Care Medicine
DX: J84.10 Pulmonary fibrosis, unspecified (principal)

== ENCOUNTER → 2023-05-06 | Outpatient (REF) | payer MEDICARE, OTHER | LOC: M LABWUC 12:29 | PROVIDERS: ATTEND Internal Medicine Critical Care Medicine | DX: I27.20 Pulmonary hypertension, unspecified (principal); R06.9 Unspecified abnormalities of breathing ==

== ENCOUNTER → 2023-08-01 | Outpatient (REF) | payer MEDICARE, OTHER ==
[2023-08-01 18:26] LABS: HEMATOCRIT 50.2 % (42.0-52.0); HEMOGLOBIN 15.2 g/dl (13.5-17.5); MEAN CORPUSCULAR HEMOGLOBIN 28.3 pg (27.0-33.0); MEAN CORPUSCULAR HGB CONC 30.3 g/dl (32.0-36.5); MEAN CORPUSCULAR VOLUME 93.3 fl (80.0-96.0); PLATELET COUNT, AUTOMATED 101 10^3/uL (150-450); RED BLOOD COUNT 5.38 10^6/uL (4.30-6.10); WHITE BLOOD COUNT 5.1 10^3/uL (4.0-10.0)
[2023-08-01 19:11] LABS: ALBUMIN 3.6 G/DL (3.2-5.2); BILIRUBIN,TOTAL 1.2 MG/DL (0.3-1.2); CALCIUM LEVEL 9.4 MG/DL (8.3-10.6); CHOLESTEROL RISK RATIO 3.71 (<5); CREATININE FOR GFR 1.58 MG/DL (0.70-1.30); FREE T4 1.25 NG/DL (0.89-1.76); GLOMERULAR FILTRATION RATE 44.8 (>35); HDL CHOLESTEROL 42.5 MG/DL (>40); LDL CHOLESTEROL 99.7 MG/DL (<100); NON-HDL-C 115.5 MG/DL; POTASSIUM SERUM 4.9 MMOL/L (3.5-5.1); THYROID STIMULATING HORMONE 1.172 uIU/ML (0.55-4.78); TOTAL PROTEIN 6.7 G/DL (5.7-8.2)
[2023-08-01 19:24] LABS: HEMOGLOBIN A1c 6.9 % (4.0-6.0)
== END ==
LOC: M SFHCADAM 14:15
PROVIDERS: ATTEND Family Medicine
DX: E78.2 Mixed hyperlipidemia (principal); G90.09 Other idiopathic peripheral autonomic neuropathy; E11.649 Type 2 diabetes mellitus with hypoglycemia without coma; E11.65 Type 2 diabetes mellitus with hyperglycemia; I11.9 Hypertensive heart disease without heart failure; J96.11 Chronic respiratory failure with hypoxia; J96.12 Chronic respiratory failure with hypercapnia; J84.10 Pulmonary fibrosis, unspecified

== ENCOUNTER → 2023-08-19 | Outpatient (CLI) | payer MEDICARE, OTHER ==
[~2023-08-19] MED LIST changes: +E-Z-GAS II EFFERVESCENT PACKET (SODIUM BICARB./CITRIC ACID/SIMETHICONE) As Ordered ONE; +E-Z-HD 98% w/w 340GM SUSP BTL As Ordered ONE; +E-Z-PAQUE 96% w/w SUSP 176GM BTL As Ordered ONE
== END ==
LOC: M RAD 08:41
PROVIDERS: ATTEND Family Medicine
DX: R13.12 Dysphagia, oropharyngeal phase (principal); Q31.3 Laryngocele; M50.30 Other cervical disc degeneration, unspecified cervical region

== ENCOUNTER → 2023-11-21 | Outpatient (CLI) | payer MEDICARE, OTHER ==
[~2023-11-21] MED LIST changes: -E-Z-GAS II EFFERVESCENT PACKET (SODIUM BICARB./CITRIC ACID/SIMETHICONE) As Ordered ONE; -E-Z-HD 98% w/w 340GM SUSP BTL As Ordered ONE; -E-Z-PAQUE 96% w/w SUSP 176GM BTL As Ordered ONE
== END ==
LOC: M PLAIMG 13:20
PROVIDERS: ATTEND Thoracic Surgery (Cardiothoracic Vascular Surgery)
DX: I77.810 Thoracic aortic ectasia (principal); J47.9 Bronchiectasis, uncomplicated

== ENCOUNTER 2024-03-27 10:34 | Inpatient (IN) | payer MEDICARE, OTHER ==
[~2024-03-27] VITALS: Ht 180.3 cm; Wt 80.0 kg
[2024-03-27] MEDS ORDERED: FURO40TA2 PO (11:51)
[2024-03-27] MEDS ORDERED: METO1TAB87 PO (11:51)
[2024-03-27] MEDS ORDERED: ASPI-226 PO (11:51)
[2024-03-27] MEDS ORDERED: TAMS1CAP17 PO (11:51)
[2024-03-27 11:56] LABS: BASO # 0.1 10^3/uL (0.0-0.2); EOS # 0.1 10^3/uL (0.0-0.5); EOS % 2.5 % (0.0-3.0); HEMOGLOBIN 14.5 g/dl (13.5-17.5); LYMPH # 0.9 10^3/uL (1.5-5.0); LYMPH % 20.4 % (24.0-44.0); MEAN CORPUSCULAR HEMOGLOBIN 28.7 pg (27.0-33.0); MEAN CORPUSCULAR HGB CONC 30.2 g/dl (32.0-36.5); MONO # 0.4 10^3/uL (0.0-0.8); MONO % 9.8 % (2.0-8.0); NEUTROPHILS # 2.9 10^3/uL (1.5-8.5); NEUTROPHILS % 65.1 % (36.0-66.0); RED BLOOD COUNT 5.05 10^6/uL (4.30-6.10); WHITE BLOOD COUNT 4.5 10^3/uL (4.0-10.0)
[2024-03-27 12:19] LABS: PLATELET COUNT, AUTOMATED 93 10^3/uL (150-450)
[2024-03-27] MEDS: LIDOCAINE 2% 5ML JELLY UROJET TOP ONE (12:50)
[2024-03-27 13:15] LABS: CK-MB VALUE MASS 5.1 NG/ML (<3.6)
[2024-03-27 13:23] LABS: BILIRUBIN,DIRECT 0.5 MG/DL (<0.4); BILIRUBIN,TOTAL 1.1 MG/DL (0.3-1.2); CALCIUM LEVEL 8.5 MG/DL (8.3-10.6); CREATININE FOR GFR 1.79 MG/DL (0.70-1.30); GLOMERULAR FILTRATION RATE 38.7 (>35); MB/CK RELATIVE INDEX 3.29 (< OR =4); POTASSIUM SERUM 5.2 MMOL/L (3.5-5.1); TOTAL PROTEIN 6.1 G/DL (5.7-8.2)
[2024-03-27 14:29] LABS: CK-MB VALUE MASS 5.5 NG/ML (<3.6)
[2024-03-27 14:30] LABS: MB/CK RELATIVE INDEX 3.69 (< OR =4)
[2024-03-27] MEDS: cefTRIAXone SOD 1 GM in DEXTROSE 5% (D5W) ADV/MINI-BAG 50 ML IV ONE (14:30)
[2024-03-27] MEDS ORDERED: HOME MED LIST COMPLETE! XX SCH (15:05)
[2024-03-27] MEDS ORDERED: MOM 30ML SUSPENSION UDC PO PRN (15:55)
[2024-03-27] MEDS ORDERED: MAALOX 30 ML SUSP *UDC PO PRN (15:55)
[2024-03-27 16:49] LABS: PROCALCITONIN 0.07 ng/ml
[2024-03-27] MEDS: FUROSEMIDE 40MG/4ML VIAL IV SCH (17:00)
[2024-03-27] MEDS: FUROSEMIDE 40MG/4ML VIAL IV STA (17:20)
[2024-03-27] MEDS: INSULIN LISPRO (NovoLOG) PER UNIT SC SCH ×2 (17:30→20:34)
[2024-03-27] MEDS ORDERED: GLUCAGON INJ 1MG VIAL SC PRN (17:35)
[2024-03-27] MEDS ORDERED: DEXTROSE 50% 50ML SYRINGE IV PRN (17:35)
[2024-03-27] MEDS ORDERED: GLUCOSE 4 GM CHEW PO PRN (17:35)
[2024-03-27 18:10] VITALS: BP 144/77; TEMP 98.9; O2SAT 92
[2024-03-27 20:00] VITALS: BP 110/60; TEMP 97.8; O2SAT 93
[2024-03-27] MEDS: DOXYCYCLINE HYCLATE 100MG TABLET PO SCH (20:38)
[2024-03-27] MEDS: TAMSULOSIN 0.4 MG CAP PO SCH (20:38)
[2024-03-27] MEDS: METOPROLOL TART 12.5 MG PER 1/2 TAB PO SCH (20:39)
[2024-03-27] MEDS ORDERED: RAMELTEON 8 MG TAB (ROZEREM) PO PRN (20:55)
[2024-03-27] MEDS: OLANZapine INTRAMUSCULAR 10MG VIAL IM PRN (21:13)
[2024-03-27 21:20] VITALS: O2SAT 79
[2024-03-27 21:25] VITALS: O2SAT 95
[2024-03-27] MEDS: diphenhydrAMINE 50MG/ML VIAL IM PRN (21:31)
[2024-03-27] MEDS: DOXYCYCLINE HYCLATE 100 MG in DEXTROSE 5% (D5W) MINI-BAG PLU 100 ML IV SCH (22:33)
[2024-03-28] VITALS (26 sets, daily range): BP systolic 52–142; BP diastolic 24–75; TEMP 96–97.8; O2SAT 85–100
[2024-03-28] MEDS: HEPARIN SOD (PORCINE) 5000UNITS/ML 1ML VIAL/SYRINGE SC SCH (05:47)
[2024-03-28 06:30] LABS: BLOOD UREA NITROGEN 35 MG/DL (9-23); CALCIUM LEVEL 8.8 MG/DL (8.3-10.6); CARBON DIOXIDE LEVEL > 40.0 MMOL/L (20-31); CHLORIDE LEVEL 99 MMOL/L (98-107); CREATININE FOR GFR 1.58 MG/DL (0.70-1.30); GLOMERULAR FILTRATION RATE 44.7 (>35); GLUCOSE, FASTING 94 MG/DL (74-106); MAGNESIUM LEVEL 1.9 MG/DL (1.8-2.4); POTASSIUM SERUM 4.9 MMOL/L (3.5-5.1); SODIUM LEVEL 141 MMOL/L (136-145)
[2024-03-28] MEDS: cefTRIAXone SOD 2 GM in DEXTROSE 5% (D5W) ADV/MINI-BAG 50 ML IV SCH (08:17)
[2024-03-28] MEDS: ASPIRIN 81MG ENTERIC TABLET PO SCH (08:27)
[2024-03-28 19:27] LABS: VENOUS HCO3 34.9 MMOL/L (23.0-27.0); VENOUS PARTIAL PRESSURE CO2 103.6 mmHg (38.0-50.0); VENOUS PH 7.145 UNITS (7.330-7.430); VENOUS STANDARD HCO3 25.4 MMOL/L; VENOUS TOTAL CO2 38.1 MMOL/L (24.0-28.0)
[2024-03-28 19:43] LABS: BASO # 0.1 10^3/uL (0.0-0.2); BASO % 0.6 % (0.0-1.0); EOS % 0.4 % (0.0-3.0); HEMATOCRIT 59.5 % (42.0-52.0); LYMPH # 0.8 10^3/uL (1.5-5.0); LYMPH % 9.9 % (24.0-44.0); MEAN CORPUSCULAR HEMOGLOBIN 28.5 pg (27.0-33.0); MEAN CORPUSCULAR HGB CONC 29.6 g/dl (32.0-36.5); MEAN CORPUSCULAR VOLUME 96.4 fl (80.0-96.0); MONO # 0.6 10^3/uL (0.0-0.8); MONO % 7.4 % (2.0-8.0); NEUTROPHILS # 6.3 10^3/uL (1.5-8.5); NEUTROPHILS % 81.3 % (36.0-66.0); PLATELET COUNT, AUTOMATED 110 10^3/uL (150-450); RED BLOOD COUNT 6.17 10^6/uL (4.30-6.10); WHITE BLOOD COUNT 7.7 10^3/uL (4.0-10.0)
[2024-03-28 19:45] LABS: HEMOGLOBIN 17.6 g/dl (13.5-17.5)
[2024-03-28] MEDS: IPRATROPIUM 0.5MG/ALBUTEROL 2.5MG INH SOL UD 3ML (DUONEB) NEB ONE (19:45)
[2024-03-28 19:58] LABS: C REACTIVE PROTEIN QUANTITATIV 0.74 MG/DL (<1.0)
[2024-03-28 20:00] LABS: ALBUMIN 3.7 G/DL (3.2-5.2); ALKALINE PHOSPHATASE 126 U/L (40-129); ALT/SGPT 15 U/L (7.0-40); AST/SGOT 26 U/L (<34); BILIRUBIN,DIRECT 0.5 MG/DL (<0.4); BILIRUBIN,TOTAL 1.1 MG/DL (0.3-1.2); BLOOD UREA NITROGEN 33 MG/DL (9-23); CALCIUM LEVEL 9.5 MG/DL (8.3-10.6); CARBON DIOXIDE LEVEL > 40.0 MMOL/L (20-31); CHLORIDE LEVEL 96 MMOL/L (98-107); CREATININE FOR GFR 1.54 MG/DL (0.70-1.30); GLUCOSE, FASTING 96 MG/DL (74-106); POTASSIUM SERUM 4.8 MMOL/L (3.5-5.1); SODIUM LEVEL 142 MMOL/L (136-145)
[2024-03-28] MEDS: METOPROLOL 5 MG/5 ML VIAL IV STA (20:52)
[2024-03-28] MEDS: NOREPINEPHRINE 4MG IN D5 250ML 4 MG in IV 1 EA IV SCH (21:10)
[2024-03-28] MEDS: LR 250 ML IV ONE (22:35)
[2024-03-28 23:31] LABS: ABG BASE EXCESS 7.9 (-2.0-2.0); ABG HCO3 44.1 MMOL/L (22.0-26.0); ABG O2 SATURATION 99.4 % (95.0-99.0); ABG STANDARD HCO3 31.8 MMOL/L. (22.0-26.0); ABG TOTAL CO2 48.2 MMOL/L (23.0-31.0)
[2024-03-28 23:33] LABS: ABG PARTIAL PRESSURE CO2 136.4 mmHg (35.0-45.0); ABG pH (ARTERIAL) 7.127 UNITS (7.350-7.450)
[2024-03-28] MEDS ORDERED: SODIUM BICARBONATE 8.4% INJ 50ML SYRINGE As Ordered ONE (23:43)
[2024-03-28] MEDS ORDERED: CALCIUM GLUCONATE 1,000 MG in DEXTROSE 5% (D5W) MINI-BAG PLU 100 ML IV SCH (23:45)
[2024-03-28] MEDS ORDERED: CALCIUM GLUCONATE 1,000MG/10ML VIAL (100MG/ML) As Ordered ONE (23:49)
[2024-03-28] MEDS ORDERED: MIDAZOLAM INJ 2MG/2ML VIAL As Ordered ONE (23:52)
[2024-03-28] MEDS: MIDAZOLAM INJ 2MG/2ML VIAL IV STA (23:53)
[2024-03-28] MEDS: SODIUM BICARBONATE 8.4% INJ 50ML SYRINGE IV STA ×4 (23:53→23:59)
[2024-03-29] VITALS (101 sets, daily range): BP systolic 86–133; BP diastolic 44–84; TEMP 97–100; O2SAT 60–100
[2024-03-29] MEDS: ROCURONIUM BROMIDE 50MG/5ML VIAL IV SCH (00:02)
[2024-03-29] MEDS: CALCIUM GLUCONATE 1,000 MG in DEXTROSE 5% (D5W) MINI-BAG PLU 100 ML IV ONE (00:07)
[2024-03-29] MEDS ORDERED: FENTANYL DRIP LOCK BOX KEY 1 EACH XX PRN (00:10)
[2024-03-29] MEDS: fentaNYL CITRATE/NaCl 1,000 MCG in IV 1 EA IV SCH (00:26)
[2024-03-29] MEDS: MIDAZOLAM 100MG/100ML-0.9%NACL 100 MG in IV 1 EA IV SCH (00:27)
[2024-03-29 00:39] LABS: VENOUS BASE EXCESS 11.4 (-2.0-2.0); VENOUS HCO3 43.9 MMOL/L (23.0-27.0); VENOUS O2 SATURATION 96.8 % (60.0-80.0); VENOUS PARTIAL PRESSURE CO2 95.6 mmHg (38.0-50.0); VENOUS PARTIAL PRESSURE O2 87.1 mmHg (30.0-50.0); VENOUS STANDARD HCO3 35.3 MMOL/L; VENOUS TOTAL CO2 46.8 MMOL/L (24.0-28.0)
[2024-03-29] MEDS: MIDAZOLAM 5MG/ML 1ML VIAL IV STA (00:44)
[2024-03-29 03:47] LABS: VENOUS BASE EXCESS 17.4 (-2.0-2.0); VENOUS HCO3 45.1 MMOL/L (23.0-27.0); VENOUS O2 SATURATION 92.3 % (60.0-80.0); VENOUS PARTIAL PRESSURE CO2 61.6 mmHg (38.0-50.0); VENOUS PARTIAL PRESSURE O2 49.7 mmHg (30.0-50.0); VENOUS PH 7.482 UNITS (7.330-7.430); VENOUS STANDARD HCO3 41.5 MMOL/L; VENOUS TOTAL CO2 46.9 MMOL/L (24.0-28.0)
[2024-03-29 04:26] LABS: ALBUMIN 2.9 G/DL (3.2-5.2); ALKALINE PHOSPHATASE 103 U/L (40-129); ALT/SGPT 15 U/L (7.0-40); AST/SGOT 19 U/L (<34); BILIRUBIN,TOTAL 2.1 MG/DL (0.3-1.2); BLOOD UREA NITROGEN 35 MG/DL (9-23); CALCIUM LEVEL 9.4 MG/DL (8.3-10.6); CARBON DIOXIDE LEVEL > 40.0 MMOL/L (20-31); CHLORIDE LEVEL 96 MMOL/L (98-107); CREATININE FOR GFR 1.44 MG/DL (0.70-1.30); GLOMERULAR FILTRATION RATE 49.8 (>35); GLUCOSE, FASTING 99 MG/DL (74-106); MAGNESIUM LEVEL 1.8 MG/DL (1.8-2.4); POTASSIUM SERUM 4.9 MMOL/L (3.5-5.1); SODIUM LEVEL 146 MMOL/L (136-145)
[2024-03-29 09:08] LABS: FREE T4 1.24 NG/DL (0.89-1.76)
[2024-03-29 09:09] LABS: THYROID STIMULATING HORMONE 0.879 uIU/ML (0.55-4.78)
[2024-03-29 09:12] LABS: BASO % 0.3 % (0.0-1.0); HEMATOCRIT 50.9 % (42.0-52.0); HEMOGLOBIN 15.7 g/dl (13.5-17.5); LYMPH # 0.7 10^3/uL (1.5-5.0); LYMPH % 6.4 % (24.0-44.0); MEAN CORPUSCULAR HGB CONC 30.8 g/dl (32.0-36.5); MEAN CORPUSCULAR VOLUME 94.1 fl (80.0-96.0); MONO # 0.8 10^3/uL (0.0-0.8); MONO % 7.6 % (2.0-8.0); NEUTROPHILS # 9.1 10^3/uL (1.5-8.5); NEUTROPHILS % 85.4 % (36.0-66.0); RED BLOOD COUNT 5.41 10^6/uL (4.30-6.10); WHITE BLOOD COUNT 10.6 10^3/uL (4.0-10.0)
[2024-03-29 09:13] LABS: PLATELET COUNT, AUTOMATED 93 10^3/uL (150-450)
[2024-03-29] MEDS: PANTOPRAZOLE 40MG VIAL IV SCH (09:38)
[2024-03-30] VITALS (19 sets, daily range): BP systolic 85–139; BP diastolic 49–68; TEMP 97.5–99.5; O2SAT 93–100
[2024-03-30 05:28] LABS: BASO # 0.1 10^3/uL (0.0-0.2); BASO % 0.9 % (0.0-1.0); EOS # 0.1 10^3/uL (0.0-0.5); EOS % 1.3 % (0.0-3.0); HEMATOCRIT 45.7 % (42.0-52.0); HEMOGLOBIN 14.2 g/dl (13.5-17.5); LYMPH % 17.4 % (24.0-44.0); MEAN CORPUSCULAR HEMOGLOBIN 28.9 pg (27.0-33.0); MEAN CORPUSCULAR HGB CONC 31.1 g/dl (32.0-36.5); MEAN CORPUSCULAR VOLUME 92.9 fl (80.0-96.0); MONO # 0.5 10^3/uL (0.0-0.8); MONO % 9.6 % (2.0-8.0); NEUTROPHILS # 3.9 10^3/uL (1.5-8.5); NEUTROPHILS % 70.6 % (36.0-66.0); RED BLOOD COUNT 4.92 10^6/uL (4.30-6.10); WHITE BLOOD COUNT 5.5 10^3/uL (4.0-10.0)
[2024-03-30 05:33] LABS: PLATELET COUNT, AUTOMATED 81 10^3/uL (150-450)
[2024-03-30 05:49] LABS: ALBUMIN 2.5 G/DL (3.2-5.2); ALKALINE PHOSPHATASE 81 U/L (40-129); ALT/SGPT 10 U/L (7.0-40); AST/SGOT 27 U/L (<34); BILIRUBIN,TOTAL 1.6 MG/DL (0.3-1.2); BLOOD UREA NITROGEN 36 MG/DL (9-23); CALCIUM LEVEL 8.9 MG/DL (8.3-10.6); CARBON DIOXIDE LEVEL > 40.0 MMOL/L (20-31); CHLORIDE LEVEL 98 MMOL/L (98-107); CREATININE FOR GFR 1.45 MG/DL (0.70-1.30); GLOMERULAR FILTRATION RATE 49.4 (>35); GLUCOSE, FASTING 71 MG/DL (74-106); MAGNESIUM LEVEL 1.8 MG/DL (1.8-2.4); PHOSPHORUS LEVEL 3.1 MG/DL (2.4-5.1); POTASSIUM SERUM 4.5 MMOL/L (3.5-5.1); SODIUM LEVEL 146 MMOL/L (136-145); TOTAL PROTEIN 5.4 G/DL (5.7-8.2)
[2024-03-30] MEDS: INSULIN LISPRO (NovoLOG) PER UNIT SC SCH ×3 (11:41→20:11)
[2024-03-30 13:41] LABS: VENOUS BASE EXCESS 12.2 (-2.0-2.0); VENOUS HCO3 45.2 MMOL/L (23.0-27.0); VENOUS O2 SATURATION 94.3 % (60.0-80.0); VENOUS PARTIAL PRESSURE CO2 103.5 mmHg (38.0-50.0); VENOUS PARTIAL PRESSURE O2 75.7 mmHg (30.0-50.0); VENOUS PH 7.258 UNITS (7.330-7.430); VENOUS TOTAL CO2 48.4 MMOL/L (24.0-28.0)
[2024-03-30 15:13] LABS: VENOUS BASE EXCESS 11.9 (-2.0-2.0); VENOUS HCO3 43.1 MMOL/L (23.0-27.0); VENOUS O2 SATURATION 84.8 % (60.0-80.0); VENOUS PARTIAL PRESSURE CO2 89.8 mmHg (38.0-50.0); VENOUS PARTIAL PRESSURE O2 50.6 mmHg (30.0-50.0); VENOUS PH 7.299 UNITS (7.330-7.430); VENOUS STANDARD HCO3 35.4 MMOL/L; VENOUS TOTAL CO2 45.9 MMOL/L (24.0-28.0)
[2024-03-30] MEDS ORDERED: dexmedeTOMIDine (4MCG/ML)200MCG/50ML BTL (PRECEDEX) As Ordered ONE (15:53)
[2024-03-30] MEDS: dexmedeTOMidine 200 MCG in IV 1 EA IV SCH (16:15)
[2024-03-30 18:11] LABS: ABG BASE EXCESS 12.3 (-2.0-2.0); ABG HCO3 43.3 MMOL/L (22.0-26.0); ABG O2 SATURATION 98.8 % (95.0-99.0); ABG PARTIAL PRESSURE O2 140.3 mmHg (75.0-100.0); ABG STANDARD HCO3 36.2 MMOL/L. (22.0-26.0); ABG TOTAL CO2 46.1 MMOL/L (23.0-31.0)
[2024-03-30 18:14] LABS: ABG PARTIAL PRESSURE CO2 90.1 mmHg (35.0-45.0)
[2024-03-30] MEDS: QUEtiapine FUMARATE 12.5 MG HALF-TAB PO SCH (18:48)
[2024-03-31] VITALS (15 sets, daily range): BP systolic 111–168; BP diastolic 54–73; TEMP 97–98.2; O2SAT 74–100
[2024-03-31 01:38] LABS: VENOUS BASE EXCESS 14.1 (-2.0-2.0); VENOUS HCO3 44.5 MMOL/L (23.0-27.0); VENOUS O2 SATURATION 98.9 % (60.0-80.0); VENOUS PARTIAL PRESSURE CO2 85.3 mmHg (38.0-50.0); VENOUS PARTIAL PRESSURE O2 141.5 mmHg (30.0-50.0); VENOUS PH 7.335 UNITS (7.330-7.430); VENOUS STANDARD HCO3 38.1 MMOL/L; VENOUS TOTAL CO2 47.1 MMOL/L (24.0-28.0)
[2024-03-31 04:48] LABS: VENOUS BASE EXCESS 13.1 (-2.0-2.0); VENOUS PARTIAL PRESSURE CO2 72.4 mmHg (38.0-50.0); VENOUS PARTIAL PRESSURE O2 79.1 mmHg (30.0-50.0); VENOUS PH 7.381 UNITS (7.330-7.430); VENOUS TOTAL CO2 44.2 MMOL/L (24.0-28.0)
[2024-03-31 04:50] LABS: BASO # 0.1 10^3/uL (0.0-0.2); BASO % 1.3 % (0.0-1.0); EOS # 0.1 10^3/uL (0.0-0.5); EOS % 3.3 % (0.0-3.0); HEMATOCRIT 47.4 % (42.0-52.0); HEMOGLOBIN 14.1 g/dl (13.5-17.5); LYMPH # 0.9 10^3/uL (1.5-5.0); LYMPH % 22.8 % (24.0-44.0); MEAN CORPUSCULAR HEMOGLOBIN 28.2 pg (27.0-33.0); MEAN CORPUSCULAR HGB CONC 29.7 g/dl (32.0-36.5); MEAN CORPUSCULAR VOLUME 94.8 fl (80.0-96.0); MONO # 0.5 10^3/uL (0.0-0.8); MONO % 12.8 % (2.0-8.0); NEUTROPHILS # 2.3 10^3/uL (1.5-8.5); NEUTROPHILS % 59.5 % (36.0-66.0); WHITE BLOOD COUNT 3.9 10^3/uL (4.0-10.0)
[2024-03-31 04:52] LABS: PLATELET COUNT, AUTOMATED 67 10^3/uL (150-450)
[2024-03-31 05:26] LABS: BLOOD UREA NITROGEN 38 MG/DL (9-23); CALCIUM LEVEL 8.9 MG/DL (8.3-10.6); CARBON DIOXIDE LEVEL > 40.0 MMOL/L (20-31); CHLORIDE LEVEL 97 MMOL/L (98-107); CREATININE FOR GFR 1.29 MG/DL (0.70-1.30); GLOMERULAR FILTRATION RATE 56.5 (>35); GLUCOSE, FASTING 68 MG/DL (74-106); MAGNESIUM LEVEL 1.9 MG/DL (1.8-2.4); POTASSIUM SERUM 4.2 MMOL/L (3.5-5.1); SODIUM LEVEL 143 MMOL/L (136-145)
[2024-03-31 13:36] LABS: VENOUS BASE EXCESS 7.6 (-2.0-2.0); VENOUS HCO3 39.1 MMOL/L (23.0-27.0); VENOUS O2 SATURATION 91.3 % (60.0-80.0); VENOUS PARTIAL PRESSURE CO2 90.8 mmHg (38.0-50.0); VENOUS PARTIAL PRESSURE O2 64.1 mmHg (30.0-50.0); VENOUS PH 7.252 UNITS (7.330-7.430); VENOUS STANDARD HCO3 31.2 MMOL/L; VENOUS TOTAL CO2 41.9 MMOL/L (24.0-28.0)
[2024-03-31] MEDS: IPRATROPIUM 0.5MG/ALBUTEROL 2.5MG INH SOL UD 3ML (DUONEB) NEB SCH (15:24)
[2024-03-31] MEDS: DOXYCYCLINE HYCLATE 100MG TABLET PO SCH (20:42)
[2024-04-01] VITALS (16 sets, daily range): BP systolic 110–158; BP diastolic 53–74; TEMP 97–98.2; O2SAT 80–100
[2024-04-01] MEDS: LORazepam 2 MG/ML 1ML VIAL IV STA (05:59)
[2024-04-01] MEDS: OLANZapine INTRAMUSCULAR 10MG VIAL IM STA (06:16)
[2024-04-01 07:50] LABS: ABG BASE EXCESS 12.3 (-2.0-2.0); ABG HCO3 44.1 MMOL/L (22.0-26.0); ABG pH (ARTERIAL) 7.282 UNITS (7.350-7.450)
[2024-04-01 07:54] LABS: ABG PARTIAL PRESSURE CO2 95.5 mmHg (35.0-45.0); ABG PARTIAL PRESSURE O2 31.9 mmHg (75.0-100.0)
[2024-04-01 08:45] LABS: BASO % 1.2 % (0.0-1.0); EOS # 0.1 10^3/uL (0.0-0.5); EOS % 4.1 % (0.0-3.0); HEMATOCRIT 49.2 % (42.0-52.0); HEMOGLOBIN 14.6 g/dl (13.5-17.5); LYMPH % 29.9 % (24.0-44.0); MEAN CORPUSCULAR HEMOGLOBIN 28.7 pg (27.0-33.0); MEAN CORPUSCULAR HGB CONC 29.7 g/dl (32.0-36.5); MEAN CORPUSCULAR VOLUME 96.9 fl (80.0-96.0); MONO # 0.4 10^3/uL (0.0-0.8); MONO % 12.7 % (2.0-8.0); NEUTROPHILS # 1.8 10^3/uL (1.5-8.5); NEUTROPHILS % 51.8 % (36.0-66.0); RED BLOOD COUNT 5.08 10^6/uL (4.30-6.10); WHITE BLOOD COUNT 3.4 10^3/uL (4.0-10.0)
[2024-04-01 08:47] LABS: PLATELET COUNT, AUTOMATED 71 10^3/uL (150-450)
[2024-04-01 09:23] LABS: BLOOD UREA NITROGEN 31 MG/DL (9-23); CARBON DIOXIDE LEVEL > 40.0 MMOL/L (20-31); CHLORIDE LEVEL 98 MMOL/L (98-107); CREATININE FOR GFR 1.19 MG/DL (0.70-1.30); GLOMERULAR FILTRATION RATE > 60.0 (>35); GLUCOSE, FASTING 120 MG/DL (74-106); MAGNESIUM LEVEL 2.1 MG/DL (1.8-2.4); POTASSIUM SERUM 4.4 MMOL/L (3.5-5.1); SODIUM LEVEL 143 MMOL/L (136-145)
[2024-04-01 09:51] LABS: VENOUS BASE EXCESS 11.2 (-2.0-2.0); VENOUS HCO3 43.5 MMOL/L (23.0-27.0); VENOUS O2 SATURATION 99.6 % (60.0-80.0); VENOUS PARTIAL PRESSURE CO2 100.3 mmHg (38.0-50.0); VENOUS PARTIAL PRESSURE O2 216.7 mmHg (30.0-50.0); VENOUS PH 7.255 UNITS (7.330-7.430); VENOUS STANDARD HCO3 35.1 MMOL/L; VENOUS TOTAL CO2 46.6 MMOL/L (24.0-28.0)
[2024-04-01 21:23] LABS: MYCOPLASMA PNEUMONIAE IGG 2.31 (<=0.90)
[2024-04-01] MEDS ORDERED: GLUCOSE 4 GM CHEW PO PRN (21:40)
[2024-04-01] MEDS ORDERED: DEXTROSE 50% 50ML SYRINGE IV PRN (21:40)
[2024-04-01] MEDS ORDERED: GLUCAGON INJ 1MG VIAL SC PRN (21:40)
[2024-04-02] VITALS (23 sets, daily range): BP systolic 99–139; BP diastolic 54–93; TEMP 96.8–98.6; O2SAT 81–99
[2024-04-02 05:19] LABS: BASO % 1.2 % (0.0-1.0); EOS # 0.2 10^3/uL (0.0-0.5); EOS % 6.1 % (0.0-3.0); HEMATOCRIT 48.7 % (42.0-52.0); HEMOGLOBIN 14.1 g/dl (13.5-17.5); LYMPH # 0.4 10^3/uL (1.5-5.0); LYMPH % 17.8 % (24.0-44.0); MEAN CORPUSCULAR HEMOGLOBIN 28.6 pg (27.0-33.0); MEAN CORPUSCULAR VOLUME 98.8 fl (80.0-96.0); MONO # 0.3 10^3/uL (0.0-0.8); MONO % 12.6 % (2.0-8.0); NEUTROPHILS # 1.5 10^3/uL (1.5-8.5); NEUTROPHILS % 61.9 % (36.0-66.0); RED BLOOD COUNT 4.93 10^6/uL (4.30-6.10); WHITE BLOOD COUNT 2.5 10^3/uL (4.0-10.0)
[2024-04-02 05:24] LABS: PLATELET COUNT, AUTOMATED 66 10^3/uL (150-450)
[2024-04-02 05:53] LABS: BLOOD UREA NITROGEN 27 MG/DL (9-23); CALCIUM LEVEL 8.9 MG/DL (8.3-10.6); CARBON DIOXIDE LEVEL > 40.0 MMOL/L (20-31); CHLORIDE LEVEL 99 MMOL/L (98-107); CREATININE FOR GFR 1.08 MG/DL (0.70-1.30); GLOMERULAR FILTRATION RATE > 60.0 (>35); GLUCOSE, FASTING 81 MG/DL (74-106); MAGNESIUM LEVEL 2.2 MG/DL (1.8-2.4); POTASSIUM SERUM 4.8 MMOL/L (3.5-5.1); SODIUM LEVEL 143 MMOL/L (136-145)
[2024-04-02] MEDS: FUROSEMIDE 40MG/4ML VIAL IV SCH (08:58)
[2024-04-02] MEDS ORDERED: IPRATROPIUM 0.5MG/ALBUTEROL 2.5MG INH SOL UD 3ML (DUONEB) NEB PRN (12:30)
[2024-04-02 15:57] LABS: URINE STREP PNEUMONIAE ANTIGEN NOT DETECTED (NOT DETECT)
[2024-04-02] MEDS: INSULIN LISPRO (NovoLOG) PER UNIT SC SCH ×2 (17:26)
[2024-04-02] MEDS: QUEtiapine FUMARATE 12.5 MG HALF-TAB PO SCH (20:09)
[2024-04-03] VITALS (22 sets, daily range): BP systolic 115–155; BP diastolic 54–72; TEMP 97.9–99.3; O2SAT 82–100
[2024-04-03 05:32] LABS: HEMATOCRIT 51.2 % (42.0-52.0); HEMOGLOBIN 14.6 g/dl (13.5-17.5); MEAN CORPUSCULAR HEMOGLOBIN 28.5 pg (27.0-33.0); MEAN CORPUSCULAR HGB CONC 28.5 g/dl (32.0-36.5); MEAN CORPUSCULAR VOLUME 99.8 fl (80.0-96.0); RED BLOOD COUNT 5.13 10^6/uL (4.30-6.10); WHITE BLOOD COUNT 5.4 10^3/uL (4.0-10.0)
[2024-04-03 05:46] LABS: PLATELET COUNT, AUTOMATED 73 10^3/uL (150-450)
[2024-04-03 05:58] LABS: ABG BASE EXCESS 13.3 (-2.0-2.0); ABG HCO3 45.6 MMOL/L (22.0-26.0); ABG O2 SATURATION 97.5 % (95.0-99.0); ABG PARTIAL PRESSURE O2 98.1 mmHg (75.0-100.0); ABG STANDARD HCO3 37.2 MMOL/L. (22.0-26.0); ABG TOTAL CO2 48.7 MMOL/L (23.0-31.0)
[2024-04-03 06:02] LABS: ABG PARTIAL PRESSURE CO2 101.5 mmHg (35.0-45.0)
[2024-04-03 06:10] LABS: ALKALINE PHOSPHATASE 82 U/L (40-129); ALT/SGPT 18 U/L (7.0-40); AST/SGOT 38 U/L (<34); BLOOD UREA NITROGEN 27 MG/DL (9-23); CALCIUM LEVEL 8.7 MG/DL (8.3-10.6); CARBON DIOXIDE LEVEL > 40.0 MMOL/L (20-31); CHLORIDE LEVEL 97 MMOL/L (98-107); CREATININE FOR GFR 1.12 MG/DL (0.70-1.30); GLOMERULAR FILTRATION RATE > 60.0 (>35); GLUCOSE, FASTING 115 MG/DL (74-106); POTASSIUM SERUM 4.7 MMOL/L (3.5-5.1); SODIUM LEVEL 145 MMOL/L (136-145); TOTAL PROTEIN 6.2 G/DL (5.7-8.2)
[2024-04-03 12:37] LABS: ABG BASE EXCESS 14.4 (-2.0-2.0); ABG HCO3 47.9 MMOL/L (22.0-26.0); ABG O2 SATURATION 98.3 % (95.0-99.0); ABG PARTIAL PRESSURE O2 105.8 mmHg (75.0-100.0); ABG STANDARD HCO3 38.4 MMOL/L. (22.0-26.0); ABG TOTAL CO2 51.4 MMOL/L (23.0-31.0)
[2024-04-03 12:41] LABS: ABG PARTIAL PRESSURE CO2 111.8 mmHg (35.0-45.0)
[2024-04-03] MEDS: HALOPERIDOL LACTATE 5MG/ML VIAL IM ONE (22:59)
[2024-04-04 05:03] VITALS: BP 129/56; TEMP 98.8; O2SAT 99
[2024-04-04 05:52] LABS: HEMATOCRIT 53.5 % (42.0-52.0); HEMOGLOBIN 15.2 g/dl (13.5-17.5); MEAN CORPUSCULAR HEMOGLOBIN 28.2 pg (27.0-33.0); MEAN CORPUSCULAR HGB CONC 28.4 g/dl (32.0-36.5); MEAN CORPUSCULAR VOLUME 99.3 fl (80.0-96.0); PLATELET COUNT, AUTOMATED 69 10^3/uL (150-450); RED BLOOD COUNT 5.39 10^6/uL (4.30-6.10); WHITE BLOOD COUNT 5.3 10^3/uL (4.0-10.0)
[2024-04-04 06:22] LABS: ALBUMIN 3.1 G/DL (3.2-5.2); ALKALINE PHOSPHATASE 87 U/L (40-129); ALT/SGPT 19 U/L (7.0-40); AST/SGOT 34 U/L (<34); BILIRUBIN,TOTAL 1.2 MG/DL (0.3-1.2); BLOOD UREA NITROGEN 26 MG/DL (9-23); CALCIUM LEVEL 9.1 MG/DL (8.3-10.6); CARBON DIOXIDE LEVEL > 40.0 MMOL/L (20-31); CHLORIDE LEVEL 93 MMOL/L (98-107); CREATININE FOR GFR 1.01 MG/DL (0.70-1.30); GLOMERULAR FILTRATION RATE > 60.0 (>35); GLUCOSE, FASTING 108 MG/DL (74-106); MAGNESIUM LEVEL 1.9 MG/DL (1.8-2.4); POTASSIUM SERUM 4.5 MMOL/L (3.5-5.1); SODIUM LEVEL 143 MMOL/L (136-145); TOTAL PROTEIN 6.6 G/DL (5.7-8.2)
[2024-04-04 08:14] VITALS: BP 128/57
[2024-04-04] MEDS: PANTOPRAZOLE 40MG TAB (PROTONIX) PO SCH (08:14)
[2024-04-04 08:41] LABS: ABG BASE EXCESS 21.3 (-2.0-2.0); ABG HCO3 55.8 MMOL/L (22.0-26.0); ABG PARTIAL PRESSURE O2 69.2 mmHg (75.0-100.0); ABG TOTAL CO2 59.5 MMOL/L (23.0-31.0); ABG pH (ARTERIAL) 7.287 UNITS (7.350-7.450)
[2024-04-04 08:44] LABS: ABG PARTIAL PRESSURE CO2 119.5 mmHg (35.0-45.0)
[2024-04-04] MEDS: ACETAMINOPHEN 325 MG TAB PO PRN (08:53)
[2024-04-04 11:40] VITALS: O2SAT 88
[2024-04-04 11:43] VITALS: BP 126/60; TEMP 98.8; O2SAT 93
[2024-04-04] MEDS ORDERED: ONDANSETRON 4MG 2ML VIAL IV PRN (12:25)
[2024-04-04] MEDS: SCOPOLAMINE 1MG TRANSDERMAL PATCH TOP PRN (13:00)
[2024-04-04] MEDS: MORPHINE 2 MG/ML 1ML VIAL IV PRN (13:01)
[2024-04-04] MEDS: LORazepam 2 MG/ML 1ML VIAL IV PRN (13:19)
[2024-04-04] MEDS: ATROPINE SULFATE 1% OPHTH SOLN 2ML BTL SL PRN (13:19)
[2024-04-04] MEDS ORDERED: ONDANSETRON 4MG ORAL DISINTEGRATING TAB PO PRN (23:25)
[2024-04-04] MEDS: MORPHINE 10MG/0.5ML ORAL CONCENTRATE SOLUTION U/D SL PRN (23:52)
[2024-04-05] MEDS: LORazepam 1 MG TAB SL PRN (05:07)
[2024-04-05] MEDS: MORPHINE 10MG/0.5ML ORAL CONCENTRATE SOLUTION U/D SL PRN ×2 (11:49→15:52)
== END 2024-04-05 18:45 | disposition expired | DRG 291 ==
LOC: M ED 10:34 → EDBD 10:34 → M ED INP 15:51 → M MSPAV 17:57 → M ICU 03-28 20:11 → M PCU 03-31 18:47 → M ICU 04-01 13:24 → M MSPAV 04-03 21:05
PROVIDERS: ADMIT Student in an Organized Health Care Education/Training Program; ATTEND Internal Medicine
PROC: 5A1935Z Respiratory Ventilation, Less than 24 Consecutive Hours (ICD-10-PCS; principal; 2024-03-29)
PROC: B246ZZZ Ultrasonography of Right and Left Heart (ICD-10-PCS; 2024-03-29)
PROC: 0BH17EZ Insertion of Endotracheal Airway into Trachea, Via Natural or Artificial Opening (ICD-10-PCS; 2024-03-29)
DX: I13.0 Hypertensive heart and chronic kidney disease with heart failure and stage 1 through stage 4 chronic kidney disease, or unspecified chronic kidney disease (principal); J96.22 Acute and chronic respiratory failure with hypercapnia; I50.33 Acute on chronic diastolic (congestive) heart failure; J96.21 Acute and chronic respiratory failure with hypoxia; G93.41 Metabolic encephalopathy; D69.3 Immune thrombocytopenic purpura; N17.9 Acute kidney failure, unspecified; E87.4 Mixed disorder of acid-base balance; E87.0 Hyperosmolality and hypernatremia; J84.9 Interstitial pulmonary disease, unspecified; Z66 Do not resuscitate; E78.5 Hyperlipidemia, unspecified; N40.0 Benign prostatic hyperplasia without lower urinary tract symptoms; K21.9 Gastro-esophageal reflux disease without esophagitis; E11.22 Type 2 diabetes mellitus with diabetic chronic kidney disease; I25.10 Atherosclerotic heart disease of native coronary artery without angina pectoris; H81.09 Meniere's disease, unspecified ear; N18.9 Chronic kidney disease, unspecified; R33.9 Retention of urine, unspecified; Z98.41 Cataract extraction status, right eye; Z98.42 Cataract extraction status, left eye; Z90.49 Acquired absence of other specified parts of digestive tract; Z79.82 Long term (current) use of aspirin; Z79.899 Other long term (current) drug therapy; Z88.2 Allergy status to sulfonamides; Z88.6 Allergy status to analgesic agent; Z95.5 Presence of coronary angioplasty implant and graft; Z99.81 Dependence on supplemental oxygen; G47.33 Obstructive sleep apnea (adult) (pediatric)